=== PATIENT | male | born 1980 | race African-American/Black ===

== ENCOUNTER 2018-03-07 18:18 | Inpatient (IN) | payer OTHER, SELFPAY ==
[2018-03-07 19:35] LABS: Absolute Lymphocytes (CBC) 1.1 K/uL (0.7-4.9); Absolute Monocytes 0.1 K/uL (0.1-1.3); Absolute Neutrophil 1.7 K/uL (1.8-8.0); Basophils % 0.3 % (0-1.3); Eosinophils % 0.6 % (0-4.4); Hematocrit 17.6 % (39.6-49.0); Lymphocytes % 38.5 % (15.3-44.8); MCH 35.9 pg (27.0-35.0); MCV 104.8 fL (80-100); MPV 8.3 fL (7.6-11.3); RBC Red Blood Cell Count 1.68 M/uL (4.33-5.43)
--- NOTE | 2018-03-07 19:37 | RAD REPORT ---
EXAM DESCRIPTION: RAD - Chest Pa And Lat (2 Views) - 03/07/2018 7:26 pm CLINICAL HISTORY: COUGH Chest pain. COMPARISON: No comparisons FINDINGS: Mild retrocardiac linear opacities are seen likely representing subsegmental atelectasis. No focal infiltrate typical of pneumonia identified. The heart is normal in size. No displaced fractu res.
[2018-03-07] MEDS ORDERED: NA CHLORIDE 0.9% 1,000 ML ONE (19:42)
[2018-03-07 19:43] LABS: Potassium 3.6 mmol/L (3.5-5.1)
[2018-03-07 20:08] LABS: Platelet Estimate DECR; Urine White Blood Cell Casts OK
[2018-03-07 20:09] LABS: Anisocytosis 3+; Blood Morphology Comment NOTED (NOT SEEN); Hypochromasia 2+
[2018-03-07 20:38] LABS: Albumin 3.9 g/dL (3.4-5.0); Bilirubin Direct 0.4 mg/dL (0-0.2); Bilirubin Total 1.7 mg/dL (0.2-1.0); Protein, Total 7.8 g/dL (6.4-8.2)
[2018-03-07 20:39] LABS: Hypersegmented Neutrophils PRESENT; Platelets, Giant PRESENT
--- NOTE | 2018-03-07 20:42 | ER ---
Nurse's Notes [facility] Name: Sivakumar Aguiar Jr Age: 37 yrs Sex: Male : 1980 Arrival Date: 03/07/2018 Time: 18:20 Bed 18 Private MD: Domenico Santana H Diagnosis: Pancytopenia Presentation: 03/07 18:34 Presenting complaint: Patient states: "I sprayed the yard about a week ago and since aa5 then I've been weak and sluggish". Pt also reports nausea and vomiting. Pt also reports chest congestion. Transition of care: patient was not received from another setting of care. Care prior to arrival: None. 18:34 Method Of Arrival: Ambulatory aa5 18:34 Acuity: MEGHANN 3 aa5 22:00 Onset of symptoms was March 05, 2018. Risk Assessment: Do you want to hurt yourself or bs1 someone else? Patient reports no desire to harm self or others. Initial Sepsis Screen: Does the patient meet any 2 criteria? HR > 90 bpm. Does the patient have a suspected source of infection? No. Patient's initial sepsis screen is negative. Historical: - Allergies: 18:36 No Known Allergies; aa5 - Home Meds: 18:36 levothyroxine oral [Active]; aa5 - PMHx: 18:36 Hypothyroidism; aa5 - PSHx: 18:36 Tonsillectomy; aa5 - Immunization history:: Adult Immunizations unknown. - Social history:: Smoking status: Patient/guardian denies using tobacco. - Ebola Screening: : No symptoms or risks identified at this time. Screenin:51 Abuse screen: Denies threats or abuse. Denies injuries from another. Nutritional bs1 screening: No deficits noted. Tuberculosis screening: No symptoms or risk factors identified. Fall Risk None identified. Assessment: 19:15 General: Appears in no apparent distress. uncomfortable, ill, slender, well groomed, bs1 Behavior is calm, cooperative, appropriate for age. Pain: Denies pain. Neuro: Level of Consciousness is awake, alert, obeys commands, Oriented to person, place, time, situation, Appropriate for age Reports blurred vision dizziness, weakness. Cardiovascular: Denies chest pain, palpitations, shortness of breath, Heart tones S1 S2 present Capillary refill < 3 seconds Patient's skin is warm and dry. Respiratory: Reports cough that is non-productive, reports congestion Airway is patent Trachea midline Respiratory effort is even, unlabored, Respiratory pattern is regular, symmetrical, Breath sounds are clear bilaterally. GI: Abdomen is round non-distended, Bowel sounds present X 4 quads. Abd is soft and non tender X 4 quads. : No signs and/or symptoms were reported regarding the genitourinary system. EENT: No signs and/or symptoms were reported regarding the EENT system. Derm: Skin is intact, Skin is pink, warm \\T\\ dry. normal. Musculoskeletal: No signs and/or symptoms reported regarding the musculoskeletal system. 19:15 General: Reports feeling ill for 2-3 days. bs1 20:30 Reassessment: No changes from previously documented assessment. Patient and/or family bs1 updated on plan of care and expected duration. Pain level reassessed. Patient is alert, oriented x 3, equal unlabored respirations, skin warm/dry/pink. 21:45 Reassessment: Patient appears in no apparent distress at this time. No changes from bs1 previously documented assessment. Patient and/or family updated on plan of care and expected duration. Pain level reassessed. Patient is alert, oriented x 3, equal unlabored respirations, skin warm/dry/pink. Patient being admitted. No further needs at this time. 22:40 Reassessment: Clarified with AMANDA Felipe about blood order, order is for 2 units, Dr angelica Maxwell ordered 1 unit now and then 1 on hold. AMANDA gave verbal orders to follow Admitting hospitalists orders. 22:52 Reassessment: Reassessment: Nurse informed 4th floor Nurse Shanel that blood slips were bs1 just sent to ER. Vital Signs: 18:36 BP 145 / 91; Pulse 113; Resp 18 S; Temp 99.2(TE); Pulse Ox 100% on R/A; Weight 120.2 kg aa5 (R); Height 5 ft. 9 in. (175.26 cm) (R); Pain 0/10; 19:36 BP 136 / 89; Pulse 109; Resp 17 S; Pulse Ox 100% on R/A; bs1 20:36 BP 142 / 87; Pulse 108; Resp 18; Pulse Ox 100% on R/A; bs1 21:36 BP 142 / 86; Pulse 112; Resp 17; Temp 98.8(O); Pulse Ox 100% on R/A; bs1 22:36 BP 139 / 83; Pulse 107; Resp 18; Temp 98.5(O); Pulse Ox 100% on R/A; bs1 18:36 Body Mass Index 39.13 (120.20 kg, 175.26 cm) aa5 ED Course: 18:20 Patient arrived in ED. sb2 18:20 Domenico Santana DO is Private Physician. sb2 18:35 Triage completed. aa5 18:35 Arm band placed on. aa5 18:49 Lupillo Felipe PA is PHCP. jr8 18:49 Tio Lipscomb MD is Attending Physician. jr8 19:17 Inserted saline lock: 20 gauge in right antecubital area, using aseptic technique. bs1 Blood collected. 19:23 Patient moved to radiology via wheelchair. ml 19:23 X-ray completed. Patient tolerated procedure well. ml 19:24 XRAY Chest Pa And Lat (2 Views) In Process Unspecified. EDMS 19:24 Patient moved back from radiology. ml 19:26 Codi Shaffer, RN is Primary Nurse. bs1 19:50 Patient has correct armband on for positive identification. Bed in low position. Call bs1 light in reach. Side rails up X 1. Notified Nurse Practitioner and/or Physician Order Caller of a critical lab result(s), Hgb- 6.0, Hct- 17.6, Plt 49 no orders received at this time. 20:41 Aashish Perez MD is Hospitalizing Provider. jr8 21:15 by ar, sent to lab. Second set of blood cultures drawn Type and screen done. Blood band bs1 on right wrist. 22:00 No provider procedures requiring assistance completed. Patient admitted, IV remains in bs1 place. intact. Administered Medications: 19:44 Drug: NS 0.9% 1000 ml Route: IV; Rate: 1000 ml; Site: right antecubital; bs1 22:28 Follow up: IV Status: Completed infusion bs1 21:25 Drug: Cefepime 1 grams Route: IVPB; Rate: 200 ml/hr; Infused Over: 30 mins; Site: right bs1 antecubital; 22:28 Follow up: IV Status: Completed infusion bs1 Outcome: 20:41 Decision to Hospitalize by Provider. jr8 22:52 Admitted to Tele accompanied by tech, via wheelchair, room 409, with chart, Report bs1 called to NIGEL Ugarte 22:52 Condition: stable 22:52 Instructed on the need for admit, Demonstrated understanding of instructions. 23:03 Patient left the ED. bs1 Signatures: Dispatcher [employer] EDMS Luna Pack Audri, RN RN aa5 Lupillo Felipe PA PA jr8 Codi Shaffer, RN RN bs1 Narda Grace sb2 Corrections: (The following items were deleted from the chart) 18:37 18:34 Presenting complaint: Patient states: "I sprayed the yard about a week ago and aa5 since then I've been weak and sluggish". Pt also reports nausea and vomiting. aa5 21:59 19:15 Respiratory: Airway is patent Trachea midline Respiratory effort is even, bs1 unlabored, Respiratory pattern is regular, symmetrical, Breath sounds are clear bilaterally. bs1 22:03 19:17 Inserted saline lock: 20 gauge in right antecubital area, using aseptic bs1 technique. Blood collected. bs1 22:57 22:40 Reassessment: bs1 bs1
--- NOTE | 2018-03-07 20:42 | EDPHYS ---
Physician Documentation [facility] Name: Sivakumar Aguiar Jr Age: 37 yrs Sex: Male : 1980 Arrival Date: 03/07/2018 Time: 18:20 Bed 18 Private MD: Domenico Santnaa H ED Physician Tio Lipscomb HPI: 03/07 19:29 This 37 yrs old Black Male presents to ER via Ambulatory with complaints of Weakness. jr8 19:29 Patient stated that since this weekend has had n/v, cough, congestion, fevers, fatigue. jr8 Has been trying OTC medications without relief . Severity of symptoms: At their worst the symptoms were moderate in the emergency department the symptoms are unchanged. The patient has not experienced similar symptoms in the past. The patient has not recently seen a physician. Historical: - Allergies: 18:36 No Known Allergies; aa5 - Home Meds: 18:36 levothyroxine oral [Active]; aa5 - PMHx: 18:36 Hypothyroidism; aa5 - PSHx: 18:36 Tonsillectomy; aa5 - Immunization history:: Adult Immunizations unknown. - Social history:: Smoking status: Patient/guardian denies using tobacco. - Ebola Screening: : No symptoms or risks identified at this time. ROS: 19:29 Eyes: Negative for injury, pain, redness, and discharge, ENT: Negative for injury, jr8 pain, and discharge, Neck: Negative for injury, pain, and swelling, Cardiovascular: Negative for chest pain, palpitations, and edema, Back: Negative for injury and pain, MS/Extremity: Negative for injury and deformity, Skin: Negative for injury, rash, and discoloration, Neuro: Negative for headache, weakness, numbness, tingling, and seizure. 19:29 Constitutional: Positive for chills, fever. 19:29 Respiratory: Positive for cough, with clear sputum, Negative for shortness of breath, wheezing. 19:29 Abdomen/GI: Positive for nausea and vomiting. Exam: 19:29 Head/Face: Normocephalic, atraumatic. Eyes: Pupils equal round and reactive to light, jr8 extra-ocular motions intact. Lids and lashes normal. Conjunctiva and sclera are non-icteric and not injected. Cornea within normal limits. Periorbital areas with no swelling, redness, or edema. ENT: Nares patent. No nasal discharge, no septal abnormalities noted. Tympanic membranes are normal and external auditory canals are clear. Oropharynx with no redness, swelling, or masses, exudates, or evidence of obstruction, uvula midline. Mucous membranes moist. Neck: Trachea midline, no thyromegaly or masses palpated, and no cervical lymphadenopathy. Supple, full range of motion without nuchal rigidity, or vertebral point tenderness. No Meningismus. Cardiovascular: Regular rate and rhythm with a normal S1 and S2. No gallops, murmurs, or rubs. Normal PMI, no JVD. No pulse deficits. Respiratory: Lungs have equal breath sounds bilaterally, clear to auscultation and percussion. No rales, rhonchi or wheezes noted. No increased work of breathing, no retractions or nasal flaring. Abdomen/GI: Soft, non-tender, with normal bowel sounds. No distension or tympany. No guarding or rebound. No evidence of tenderness throughout. Back: No spinal tenderness. No costovertebral tenderness. Full range of motion. Skin: Warm, dry with normal turgor. Normal color with no rashes, no lesions, and no evidence of cellulitis. MS/ Extremity: Pulses equal, no cyanosis. Neurovascular intact. Full, normal range of motion. Neuro: Awake and alert, GCS 15, oriented to person, place, time, and situation. Cranial nerves II-XII grossly intact. Motor strength 5/5 in all extremities. Sensory grossly intact. Cerebellar exam normal. Normal gait. Vital Signs: 18:36 BP 145 / 91; Pulse 113; Resp 18 S; Temp 99.2(TE); Pulse Ox 100% on R/A; Weight 120.2 kg aa5 (R); Height 5 ft. 9 in. (175.26 cm) (R); Pain 0/10; 19:36 BP 136 / 89; Pulse 109; Resp 17 S; Pulse Ox 100% on R/A; bs1 20:36 BP 142 / 87; Pulse 108; Resp 18; Pulse Ox 100% on R/A; bs1 21:36 BP 142 / 86; Pulse 112; Resp 17; Temp 98.8(O); Pulse Ox 100% on R/A; bs1 22:36 BP 139 / 83; Pulse 107; Resp 18; Temp 98.5(O); Pulse Ox 100% on R/A; bs1 18:36 Body Mass Index 39.13 (120.20 kg, 175.26 cm) aa5 MDM: 18:49 Patient medically screened. [facility] 20:36 Data reviewed: vital signs, nurses notes, lab test result(s), radiologic studies, plain [facility] films, and as a result, I will admit patient. Data interpreted: Pulse oximetry: on room air is 100 %. Interpretation: normal. Counseling: I had a detailed discussion with the patient and/or guardian regarding: the historical points, exam findings, and any diagnostic results supporting the discharge/admit diagnosis, lab results, radiology results, the need for further work-up and treatment in the hospital. 20:40 ED course: Dr. Cook and Dr. Maxwell consulted and will see patient . [facility] 03/07 18:58 Order name: CBC with Diff [facility] 03/07 18:58 Order name: Basic Metabolic Panel; Complete Time: 19:49 [facility] 03/07 19:49 Order name: CBC Smear Scan [facility] 03/07 19:55 Order name: LFT's; Complete Time: 20:38 [facility] 03/07 20:36 Order name: TS [facility] 03/07 20:37 Order name: Manual Differential [facility] 03/07 18:58 Order name: XRAY Chest Pa And Lat (2 Views); Complete Time: 19:49 [facility] 03/07 20:45 Order name: Blood Culture Adult (2) [facility] 03/07 22:06 Order name: CONS Physician Consult [facility] 03/07 22:12 Order name: ABO/RH no charge; Complete Time: 22:12 [facility] 03/07 22:13 Order name: Sputum Culture [facility] 03/07 22:13 Order name: Packed RBC Leukored -1 [facility] 03/07 18:58 Order name: IV; Complete Time: 19:26 [facility] Administered Medications: 19:44 Drug: NS 0.9% 1000 ml Route: IV; Rate: 1000 ml; Site: right antecubital; bs1 22:28 Follow up: IV Status: Completed infusion bs1 21:25 Drug: Cefepime 1 grams Route: IVPB; Rate: 200 ml/hr; Infused Over: 30 mins; Site: right bs1 antecubital; 22:28 Follow up: IV Status: Completed infusion bs1 Disposition: 03/07/18 20:41 Hospitalization ordered by Aashish Perez for Inpatient Admission. Preliminary diagnosis is Pancytopenia. - Bed requested for Telemetry/MedSurg (Inpatient). - Status is Inpatient Admission. bs1 - Condition is Stable. - Problem is new. - Symptoms are unchanged. UTI on Admission? No Addendum: 03/14/2018 07:13 Co-signature as Attending Physician, Tio Lipscomb MD. g s Signatures: Dispatcher [employer] EDMS Pita Garcia RN RN Shakira Dejesus RN RN aa5 Lupillo Felipe PA PA jr8 Tio Lipscomb MD MD Codi Shaffer RN RN bs1 Corrections: (The following items were deleted from the chart) 03/07 20:51 20:41 Hospitalization Ordered by Aashish Perez MD for Inpatient Admission. Preliminary diagnosis is Pancytopenia. Bed requested for Telemetry/MedSurg (Inpatient). Status is Inpatient Admission. Condition is Stable. Problem is new. Symptoms are unchanged. UTI on Admission? No. jr8 23:03 20:51 03/07/2018 20:41 Hospitalization Ordered by Aashish Perez MD for Inpatient bs1 Admission. Preliminary diagnosis is Pancytopenia. Bed requested for Telemetry/MedSurg (Inpatient). Status is Inpatient Admission. Condition is Stable. Problem is new. Symptoms are unchanged. UTI on Admission? No. mw
[2018-03-07] MEDS ORDERED: CEFEPIME 1 GM/100 ML BAG IV ONE (20:48)
--- NOTE | 2018-03-07 22:07 | P.HP ---
Certification for Inpatient Patient admitted to: Inpatient With expected LOS: >2 Midnights Practitioner: I am a practitioner with admitting privileges, knowledge of patient current condition, hospital course, and medical plan of care. Services: Services provided to patient in accordance with Admission requirements found in Title 42 Section 412.3 of the Code of Federal Regulations Patient History Date of Service: 03/07/18 Reason for admission: pancytopenia History of Present Illness: Mr Aguiar is a 37 years old male with history of Hypothyroidism, who start about 1 week ago with dizziness, blurred vision, and lightheadedness. He states that start with productive cough with yellowish secretion as well. The patient has sprayed mosquito barrier before his symptoms started. He also had fever and fatigue. He tried OTC cold medication but did not improved his symptoms. ER work up was remarkable for pancytopenia, WBC 3.0, Hgb 6.0 and Plt 49, also Bands 3%. CXR was remarkable for linear retrocardiac opacity. At my encounter the patient was in non-distress, tachycardic 113, BP 145/91. He denied similar episodes like that. Home medications list reviewed: Yes - Past Medical/Surgical History -: hypothyroidism Past Surgical History: Reviewed- Non-Contributory - Family History Family History: Reviewed- Non-Contributory - Social History Smoking Status: Never smoker Alcohol use: Yes CD- Drugs: No Place of Residence: Home Review of Systems 10-point ROS is otherwise unremarkable Physical Examination - Physical Exam General: Alert, In no apparent distress HEENT: Atraumatic, PERRLA, Mucous membr. moist/pink, Other (pale sclerae), EOMI Neck: Supple, 2+ carotid pulse no bruit, No LAD, Without JVD or thyroid abnormality Respiratory: Clear to auscultation bilaterally, Normal air movement Cardiovascular: Regular rate/rhythm, Normal S1 S2 Gastrointestinal: Normal bowel sounds, No tenderness Musculoskeletal: No tenderness Integumentary: No rashes Neurological: Normal strength at 5/5 x4 extr, Normal tone, Normal affect Lymphatics: No axilla or inguinal lymphadenopathy - Studies Laboratory Data (last 24 hrs) 03/07/18 19:12: Total Bilirubin 1.7 H, AST 117 H, ALT 52, Alkaline Phosphatase 43 L 03/07/18 19:12: Sodium 138, Potassium 3.6, BUN 17, Creatinine 1.20, Glucose 182 H 03/07/18 19:12: WBC 3.0 L, Hgb 6.0 L*, Hct 17.6 L*, Plt Count 49 L* Assessment and Plan - Problems (Diagnosis) (1) Pancytopenia Current Visit: Yes Status: Acute (2) Pneumonia Current Visit: Yes Status: Acute Qualifiers: Pneumonia type: due to unspecified organism Laterality: left Lung location: lower lobe of lung Qualified Code(s): J18.1 - Lobar pneumonia, unspecified organism (3) Hypothyroidism Current Visit: Yes Status: Acute Qualifiers: Hypothyroidism type: unspecified Qualified Code(s): E03.9 - Hypothyroidism , unspecified - Plan The patient will be admitted to the hospital due to Pancytopenia. Etiology is unclear at this point, however differential diagnosis include aplastic anemia, Parvovirus B19 infection, other bacterial infection. Will start empiric antibiotic treatment. Blood cultures, urine culture and sputum culture are in process. He may benefit from a bone marrow biopsy. Will consult Dr Cook. - Advance Directives Does patient have a Living Will: No Does patient have a Durable POA for Healthcare: No - Code Status/Comfort Care Code Status Assessed: Yes Code Status: Full Code
[2018-03-08] MEDS ORDERED: IPRATROPIUM BROM 0.5MG/2.5ML NEB PRN (00:03)
[2018-03-08] MEDS ORDERED: ALBUTEROL 2.5 MG/3 ML NEB SOL NEB PRN (00:03)
[2018-03-08] MEDS ORDERED: ACETAMINOPHEN 500 MG TAB PO PRN (00:03)
[2018-03-08] MEDS ORDERED: NA CHLORIDE 0.9% 250 ML IV SCH (00:03)
[2018-03-08] MEDS ORDERED: ONDANSETRON 4 MG/2 ML VIAL IV PRN (00:03)
[2018-03-08 01:13] LABS: Thyroid Stimulating Hormone 5.22 uIU/mL (0.36-3.74)
[2018-03-08] MEDS: NA CHLORIDE 0.9% 1,000 ML IV SCH ×4 (01:15→20:03)
[2018-03-08 04:56] LABS: Urine Appearance CLEAR; Urine Bilirubin NEGATIVE (NEG); Urine Blood NEGATIVE (NEG); Urine Color YELLOW; Urine Glucose NEGATIVE (NEG); Urine Protein NEGATIVE (NEG); Urine Specific Gravity 1.015 (1.005-1.030); Urine pH 6.5 (5.0-7.0)
[2018-03-08 04:57] LABS: Absolute Lymphocytes (CBC) 0.9 K/uL (0.7-4.9); Absolute Monocytes 0.1 K/uL (0.1-1.3); Absolute Neutrophil 1.4 K/uL (1.8-8.0); Basophils % 0.3 % (0-1.3); Eosinophils % 0.9 % (0-4.4); Lymphocytes % 35.8 % (15.3-44.8); MCH 35.6 pg (27.0-35.0); MCV 103.6 fL (80-100); MPV 8.6 fL (7.6-11.3); Monocytes % 4.5 % (3.3-12.3); RBC Red Blood Cell Count 1.45 M/uL (4.33-5.43)
[2018-03-08 05:07] LABS: Urine Microscopic Reflex NO UMIC
[2018-03-08 05:08] LABS: Hematocrit 15.1 % (39.6-49.0)
[2018-03-08 05:15] LABS: ALT/SGPT 45 U/L (12-78); AST/SGOT 100 U/L (15-37); Albumin 3.4 g/dL (3.4-5.0); Alkaline Phosphatase 38 U/L (45-117); BUN Blood Urea Nitrogen 14 mg/dL (7-18); Bicarbonate 29 mmol/L (21-32); Bilirubin Total 1.6 mg/dL (0.2-1.0); Glucose Level 149 mg/dL (74-106); Potassium 3.8 mmol/L (3.5-5.1); Protein, Total 6.8 g/dL (6.4-8.2); Sodium Level 138 mmol/L (136-145)
[2018-03-08] MEDS ORDERED: POTASSIUM 25 MEQ EFFERV TAB PO ONE (05:27)
[2018-03-08] MEDS ORDERED: DIPHENHYDRAMINE 50 MG/ML VIAL IV ONE (05:58)
[2018-03-08] MEDS ORDERED: HYDROCORTISONE SUC 100 MG INJ IV ONE (05:58)
[2018-03-08] MEDS ORDERED: ACETAMINOPHEN 325 MG TABLET PO ONE (05:59)
[2018-03-08] MEDS ORDERED: Magnesium Sulfate 1gm IVPB 1 GM/50 ML BAG IV ONE (09:00)
[2018-03-08] MEDS ORDERED: CEFEPIME 2 GM VIAL IV SCH (09:00)
[2018-03-08] MEDS ORDERED: CEFEPIME/SWI 2gm 2 GM/20 ML SYR IV SCH ×2 (09:00→17:00)
[2018-03-08] MEDS ORDERED: MAGNESIUM SULFATE 1 gm IVPB 1 GM/100 ML BAG IV ONE (09:00)
[2018-03-08 11:02] LABS: Hematocrit 20.8 % (39.6-49.0)
[2018-03-08 14:36] LABS: RBC Red Blood Cell Count 2.15 M/uL (4.33-5.43)
[2018-03-08 15:07] LABS: Ferritin 742.4 ng/mL (26-388); Folic Acid, (Folate) 18.6 ng/mL (3.1-17.5); Transferrin 154 mg/dL (200-360)
[2018-03-08] MEDS: CEFEPIME/SWI 2gm 2 GM/20 ML SYR IVP SCH (16:36)
--- NOTE | 2018-03-08 17:37 | PN ---
Date of Progress Note: 03/08/2018 Subjective: The patient seen and examined, chart reviewed, and case discussed with RN and Dr. Cook. The patient states that he feels slightly better, however, still feels somewhat lightheaded and weak . Treatment plan explained. All questions answered. Review of Systems: Negative except as per HPI. Medications: List reviewed. Physical Examination: Vital Signs: Temperature 98.1, heart rate 97, blood pressure 125/64, respirations 18, and O2 sat 95% on room air. General: Awake, alert, oriented x3. Some mild distress ill-appearing male. CV: S1, S2. Sinus tachycardia. No murmurs. Respiratory: Clear to auscultation bilaterally. No wheezing. No stridor. No use of accessory musc les Gastrointestinal: Abdomen is soft, nontender, nondistended. Positive bowel sounds. No guarding or rigidity. Extremities: No clubbing, cyanosis, or edema. Neurologic: Nonfocal. Laboratory Data: Sodium 138, potassium 3.8, chloride 102, CO2 29, BUN 14, creatinine 1, glucose 149, calcium 8.5, and magnesium 1.6. Iron 185, TIBC is 216, transferrin is 154, and ferritin 724. LDH i s greater than 1000. CRP 14.6, total bilirubin 1.6, AST 100, ALT 45, and TSH 5.2. WBCs 2.5, H and H 5.2, 15.1, platelets 46. Repeat H and H after transfusion are 7.2, 20.8. Absolute neutrophils are 1.4. Blood cultures and sputum cultures pending. Assessment: A 37-year-old male with; 1.Pancytopenia, unclear etiology, may be leukemia, aplastic crisis. LDH is elevated. No signs of i sangita deficiency anemia. We will follow up with Dr. Cook's recommendation. Likely needs a peripheral blood smear, if not, a bone marrow biopsy. 2.Hypothyroidism. TSH is elevated. We will adjust dose. 3.Elevated liver enzymes. 4.Gastrointestinal and deep venous thrombosis prophylaxis with PPI and SCDs. Plan: We will follow up with immunology and serology workup. The patient may need to be transferred if in acute leukemic state versus possible outpatient followup with [facility] as patient is unfunded, uni nsured. /MARGARITA Voice ID: [id number] Report ID: [id number]
[2018-03-08] MEDS: guaiFENesin 100 MG/5 ML UCUP PO PRN (20:57)
[2018-03-08 21:08] LABS: Rheumatoid Factor NEG (NEG)
--- NOTE | 2018-03-08 22:29 | CON ---
Date of Consultation: 03/08/2018 HEMATOLOGY AND ONCOLOGY CONSULT NOTE Consulting Physician: Dr. Maxwell. Reason For Consultation: Pancytopenia. History Of Present Illness: Mr. Aguiar is a 37-year-old gentleman who presented to the emergency room yesterday with complaints of severe fatigue, cough productive of yellow sputum for the past week. He gives a history of significant worsening of his fatigue along with fevers and sweats, and cough, which started approximately 10 days ago. He said, he worked outdoors on Wednesday and was extremely fatigued, and pretty much slept the weekend away. When he return to work Wednesday, he was severely exhausted. He has noted fever, chills, and sweats off and on for the past week. He denies any history of recurrent infections, bleeding, or bruising. He gives a history of hypothyroidism, diagnosed approximately 2 years ago. He has been on thyroid replacement, and says he was told fatigue was a symptom of his hypothyroidism. He has attributed easy fatigability and exhaustion to his thyroid problem since then. There is a history of 35-pound weight loss in the past 2 years, he attributed it to eating healthy. There is a history of low iron levels when he was diagnosed with hypothyroidism 2 years ago, but says he could not pursue a GI workup, because it was too expensive. There is no history of receiving transfusions in the past. There is no history of bone pain or lymph node enlargement. He denies a history of rash, recurrent mouth sores or joint swelling. Review of Systems: Otherwise unremarkable. Past Medical History: Significant for hypothyroidism as noted above. Past Surgical History: Noncontributory. Medications: At home include; levothyroxine, which was recently increased from 75 mcg to 100 mcg daily. He takes a multivitamin, and an occasional iron, over the counter, approximately twice a week. He denies any [id number] supplements. Allergies: HE HAS NO KNOWN DRUG ALLERGIES. Social History: The patient is a nonsmoker. He drinks alcohol socially. There is no history of drug use or high-risk sexual behavior. Family History: His mother at the age of 57 from serious heart, coronary disease. His father is alive and well. He has 3 siblings and 5 children, none with a history of blood problems, cancers, or leukemia. His maternal grandmother is alive and has systemic lupus erythematosus (SLE). Physical Examination: General: Mr. Aguiar was resting comfortably when I saw him earlier today. Reveals a pale gentleman. Vital Signs: T-max was 99.2 on admission, yesterday. He has been afebrile since then. Temperature was 98.4 Fahrenheit at noon today. Pulse 99, respirations 18, blood pressure 136/83, he was saturating at 95% to 100% on room air. HEENT: There are no icterus. Skin: No rashes, bleeding or bruising noted. Lymph Node: Survey shows no palpable lymphadenopathy in the neck, axilla, or groin. Chest: Clear to auscultation with no rales or rhonchi. Heart Sounds: Reveal normal S1, S2. No gallops or murmurs. Abdomen: Soft and nontender. Liver and spleen were not palpable. There are no masses or ascites. Bowel sounds are present. Neurologic: Alert and oriented with no focal deficits. Extremities: Show no evidence of edema. Laboratory Data: CBC on admission yesterday revealed a white count of 3000 with an absolute neutrophil count of 1700, hemoglobin was 6, hematocrit 17.6 with an MCV of 104.8. RDW was increased at 33.6, platelet count was 49,000. He received 2 units of packed cells. Posttransfusion; hemoglobin this morning was 7.2, hematocrit was 20.8. His retic count was normal. Absolute retic was also normal at 0.02. Sedimentation rate was significantly elevated at more than 140. Chemistries reveal normal electrolytes and renal function. Iron was elevated at 185, transferrin saturation was also elevated at 85% with a ferritin of 742. Lactate dehydrogenase (LDH) was more than 1000. C-reactive protein was 14.6. His vitamin B12 level was significantly decreased at 60 pg/ mL. Folic acid was normal at 18.6. TSH on admission was mildly elevated at 5.22. Free T4 was normal. Chest x-ray on admission showed mild retrocardiac opacities, possibly atelectasis. No acute infiltrate was noted. Assessment And Plan: 1. Pancytopenia. He presents with significant pancytopenia, especially anemia and thrombocytopenia. WBC count may be low, but could be normal for him, as can be seen in population. The possible etiologies for the pancytopenia include severe B12 and/or folic acid deficiency, aplastic anemia, or marrow hypoplasia or acute leukemia. We also discussed that immune mediated cytopenias can be seen with systemic lupus erythematosus (SLE). We will proceed with a workup to rule out or in the above etiologies including a lupus screen, HIV, and hepatitis C antibodies. B12 level available at the time of the dictation were exceedingly low and hence we will proceed with B12 supplementation, the elevated RDW, elevated LDH and MCV are all suggestive of a severe B12 deficiency, possibly pernicious anemia. Peripheral smear showed no evidence of blasts or abnormal WBC. Some hypersegmented neutrophils were seen, as can be seen with B12 deficiency. We will continue to replace B12 1000 mcg subcu or intramuscular weekly x4, and follow his CBC as outpatient. He may be discharged home once his hemoglobin has stabilized to more than 7 g/dL , and follow up in clinic with me in 1 to 2 weeks. We will follow his hemoglobin and proceed with a bone marrow biopsy as an outpatient if need be. There is no need for PRBCs unless the Hg is <7gm/dl and no need for platelet transfusion unless his platelet count is less than 10,000 or there is evidence of significant bleeding and platelet count is below 50,000. Thank you for asking me to see Mr. Aguiar. Please do not hesitate to call me if you have any other questions AP/MODAndre Voice ID: [id number] Report ID: [id number] PRICE
[2018-03-09] MEDS: CEFEPIME/SWI 2gm 2 GM/20 ML SYR IVP SCH ×2 (01:29→10:07)
[2018-03-09] MEDS: NA CHLORIDE 0.9% 1,000 ML IV SCH ×3 (02:49→09:29)
[2018-03-09 05:23] LABS: Hematocrit 20.6 % (39.6-49.0)
[2018-03-09] MEDS ORDERED: LEVOTHYROXINE SOD 0.112 MG TAB PO SCH ×2 (06:30→21:00)
[2018-03-09 07:14] LABS: BUN Blood Urea Nitrogen 12 mg/dL (7-18); Bicarbonate 29 mmol/L (21-32); Glucose Level 135 mg/dL (74-106); Magnesium 2.1 mg/dL (1.8-2.4); Potassium 3.8 mmol/L (3.5-5.1); Sodium Level 139 mmol/L (136-145)
[2018-03-09] MEDS ORDERED: POTASSIUM CL SA 10 MEQ TAB PO ONE (08:23)
[2018-03-09] MEDS: guaiFENesin 100 MG/5 ML UCUP PO PRN (09:28)
[2018-03-09 11:13] LABS: Absolute Monocytes 0.1 K/uL (0.1-1.3); Basophils % 0.2 % (0-1.3); Eosinophils % 0.5 % (0-4.4); Hematocrit 21.7 % (39.6-49.0); Lymphocytes % 31.1 % (15.3-44.8); MCH 33.6 pg (27.0-35.0); MCV 95.9 fL (80-100); MPV 8.5 fL (7.6-11.3); Monocytes % 3.7 % (3.3-12.3); RBC Red Blood Cell Count 2.26 M/uL (4.33-5.43)
[2018-03-09] MEDS ORDERED: CYANOCOBALAMIN 1000MCG/ML INJ SQ ONE (13:00)
--- NOTE | 2018-03-10 12:37 | DS ---
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 Admitting Diagnoses: 1.Pancytopenia. 2.Hypothyroidism. Discharge Diagnoses: 1.Pancytopenia. 2.Hypothyroidism. 3.Pernicious anemia. 4.Vitamin B12 deficiency. 5.Elevated liver enzymes. 6.Obesity. Hospital Course: The patient is a 37-year-old male comes in with generalized weakness. The patient was found to have pancytopenia with white count of 3, hemoglobin of 6, platelets of 49. Chest x-ray showed some linear retrocardiac opacity likely atelectasis. The patient was tachycardic. He was sta rted on IV fluids. Empiric antibiotics were initiated. He was also seen by Dr. Cook with Hematology due to his pancytopenia. The patient was transfused 2 units of PRBCs due to a drop in his hemoglobi n. Further studies revealed very low vitamin B12 level and the patient was given vitamin B12 injecti on. His TSH was elevated at 5.2, free T4 was normal. He did have some mild electrolyte abnormalitie s, which were corrected including his magnesium. The patient otherwise had serology and immunology w [facility], which is currently pending. Peripheral smear was done to rule out leukemia or other acute iss ue found to have leukopenia with absolute neutropenia and left shift, normocytic normochromic anemia with anisopoikilocytosis and few nucleated red blood cells and thrombocytopenia. No blast cells were seen. The patient was then cleared for discharge. His symptoms were improved. He did not have any further dizziness. He was able to ambulate without any difficulty. The patient was then cleared fo r discharge from hematology standpoint. The patient will continue on subcu vitamin B12 shots for the next 4 weeks and then switch over to p.o. He will need to follow up with Dr. Cook for the remainder of his workup for his anemia and pancytopenia. The patient was then discharged home in a stable con dition. Return to work on March 14. Followup: Follow up with primary care physician in 2 to 3 days, Dr. Santana. Follow up with hematologis tDr. Cook in 2 weeks. Return to ER for worsening condition. Diet: Regular. Activity: As tolerated. No strenuous activity for the next few days. Medications: As per medication reconciliation list. Total time spent discharging the patient was 43 minutes. Physical Examination: General: Awake, alert, oriented, no acute distress. CV: S1, S2. No murmurs. Respiratory: Clear to auscultation bilaterally. No wheezing. Gastrointestinal: Abdomen is soft, nontender, nondistended. Positive bowel sounds. Extremities: No clubbing, cyanosis, edema. Neurologic: Nonfocal. /MODAndre Voice ID: [id number] Report ID: [id number]
[2018-03-10 16:14] LABS: HIV 1/2 Antibody Diff Not indicated.; HIV AG/AB 4TH GEN Non-reactive (Non-reactive)
[2018-03-10 19:13] LABS: Erythropoietin 255.8 mIU/mL (2.6-18.5)
[2018-03-15] MEDS ORDERED: CYANOCOBALAMIN 1000MCG/ML INJ SQ ONE (17:00)
== END 2018-03-09 14:21 | disposition home or self-care (01) | DRG 809 ==
LOC: ER 18:18 → ERHOLD 22:03 → 4TH 22:53
PROVIDERS: ADMIT Internal Medicine; ATTEND Family Medicine
PROC: 30233N1 Transfusion of Nonautologous Red Blood Cells into Peripheral Vein, Percutaneous Approach (ICD-10-PCS; principal; 2018-03-08)
DX: D61.818 Other pancytopenia (principal); J98.11 Atelectasis; E03.9 Hypothyroidism, unspecified; D51.0 Vitamin B12 deficiency anemia due to intrinsic factor deficiency; R79.89 Other specified abnormal findings of blood chemistry; E66.8 Other obesity; Z68.32 Body mass index [BMI] 32.0-32.9, adult; E87.8 Other disorders of electrolyte and fluid balance, not elsewhere classified; E83.42 Hypomagnesemia
CPT/HCPCS: 36415; 71046; 80048; 80053; 80076; 81003; 82607; 82668; 82728; 82746; 83540; 83615; 83735; 84439; 84443; 84466; 85014; 85018; 85025; 85044; 85652; 86038; 86140; 86225; 86430; 86704; 86706; 86803; 86850; 86900; 86901; 87040; 87389; 94760; 96361; 96365; 99285; J0692; J1720; J3420; J3475; J7030; P9040

== ENCOUNTER 2019-03-13 21:21 | Emergency (ER) | payer OTHER ==
--- OUTSIDE RECORDS SUMMARY | 2019-03-13 21:23 | XMS REPORT | Continuity of Care Document ---
:1980 Author Organization [facility] Care Team Providers Name Role Phone [facility] Unavailable Unavailable Problems Problem Status Onset Classification Date Comments Source Date Reported Tuberculosis 10/03/19 Diagnosis 10/03/2016 [facility] screening 17 Tuberculosis Problem 10/03/2016 [facility] Screening Medications Medication Details Route Status Patient Ordering Order Source Instructions Provider Date chlorhexidine chlorhexidine Active [facility] gluconate 1.2 gluconate 0.12 MG/ML Mouthwash % mouthwash SWISH AND SPIT 15ML BY MOUTH 3 TIMES A DAY Clindamycin 300 MG clindamycin 300 Active [facility] Oral Capsule mg capsule TAKE 1 CAPSULE BY MOUTH EVERY 6 HOURS UNTIL ALL TAKEN doxycycline doxycycline Active [facility] hyclate 20 MG Oral hyclate 20 mg Tablet tablet TAKE 1 TABLET BY MOUTH TWICE A DAY Ibuprofen 800 MG ibuprofen 800 Active [facility] Oral Tablet mg tablet TAKE 1 TABLET BY MOUTH EVERY 6 HOURS NEEDED Levothyroxine levothyroxine Active [facility] Sodium 0.075 MG 75 mcg tablet Oral Tablet TAKE 1 TABLET BY MOUTH EVERY DAY methylprednisolone methylprednisol Active [facility] 4 mg tablets in a one 4 mg dose pack tablets in a dose pack TAKE BY MOUTH DIRECTED ON PACKAGE terbinafine 250 MG terbinafine HCl Active [facility] Oral Tablet 250 mg tablet TAKE 1 TABLET BY MOUTH EVERY DAY tramadol tramadol 50 mg Active [facility] hydrochloride 50 tablet TAKE 1 MG Oral Tablet TABLET BY MOUTH EVERY 6 HOURS NEEDED Purified Protein Tubersol 5 tub. Active [facility] Derivative of unit/0.1 mL Tuberculin 50 intradermal UNT/ML Injectable injection Solution solution [Tubersol] Allergies, Adverse Reactions, Alerts No Known Medication Allergies Immunizations No Data Provided for This Section Results No Data Provided for This Section Pathology Reports No Data Provided for This Section Diagnostic Reports No Data Provided for This Section Consultation Notes No Data Provided for This Section Discharge Summaries No Data Provided for This Section History and Physicals No Data Provided for This Section Vital Signs No Data Provided for This Section Encounters Location Location Encounter Encounter Reason Attending ADM DC Status Source Details Type Number For Provider Date Date Visit [place] - [facility] [id number] [facility] 10/03 [facility] [place], [id number] [place] [facility] [facility]: [id number] [id number] [facility] [place] [address] , Ph. Procedures No Data Provided for This Section Assessment and Plan No Data Provided for This Section Plan of Care No Data Provided for This Section Social History No Data Provided for This Section Family History No Data Provided for This Section Advance Directives No Data Provided for This Section Functional Status No Data Provided for This Section
[2019-03-13 22:06] LABS: Absolute Lymphocytes (CBC) 1.2 K/uL (0.7-4.9); Basophils % 0.5 % (0-1.3); Eosinophils % 2.1 % (0-4.4); Hematocrit 46.7 % (39.6-49.0); Lymphocytes % 30.6 % (15.3-44.8); MPV 9.1 fL (7.6-11.3); Monocytes % 10.9 % (3.3-12.3); RBC Red Blood Cell Count 5.28 M/uL (4.33-5.43)
[2019-03-13] MEDS ORDERED: NA CHLORIDE 0.9% 1,000 ML ONE ×2 (22:11→23:05)
[2019-03-13 22:19] LABS: Albumin 3.9 g/dL (3.4-5.0); Bilirubin Total 0.7 mg/dL (0.2-1.0); Potassium 4.8 mmol/L (3.5-5.1); Protein, Total 8.4 g/dL (6.4-8.2)
[2019-03-13 22:34] LABS: Urine Blood NEGATIVE (NEG); Urine Glucose 2+ (NEG); Urine Protein NEGATIVE (NEG); Urine Specific Gravity <1.005 (1.005-1.030); Urine pH 5.5 (5.0-7.0)
[2019-03-13 22:50] LABS: Arterial Blood Carboxyhemoglob 1.2 % (0-1.5); Blood Gas Oxyhemoglobin 95.4 % (94-97); Blood O2 Saturation 97.6 % (92-98.5)
[2019-03-13] MEDS ORDERED: INSULIN -REGULAR HUMAN 50 UNIT/0.5 ML ML ONE (23:05)
[2019-03-14] MEDS ORDERED: NA CHLORIDE 0.9% 1,000 ML ONE (00:58)
--- NOTE | 2019-03-14 02:31 | EDPHYS ---
Physician Documentation [facility] Name: Sivakumar Aguiar Jr Age: 38 yrs Sex: Male : 1980 Arrival Date: 03/13/2019 Time: 21:24 Bed 8 Private MD: Domenico Santana H ED Physician Wilbert Kern HPI: 03/14 01:10 This 38 yrs old Black Male presents to ER via Ambulatory with complaints of High Blood pm1 Sugar. 01:10 The patient or guardian reports hyperglycemia, that was potentially precipitated by no pm1 improvement in his blood sugar with diet and exercise for the past 2-3 months. Onset: The symptoms/episode began/occurred 1 week(s) ago. Associated signs and symptoms: Pertinent positives: polydipsia, polyuria, generalized weakness. Current symptoms: In the emergency department the patient's symptoms have worsened. The patient has been recently seen by a physician: the patient's primary care provider, Dr. Santana. Patient presents today with elevated blood sugar. Has known for the past 2-3 months that his blood sugars have been high. Saw his PCP and was trailed on diet and exercise. For the past 1 week he has had generalized weakness, polydipsia and polyuria. Patient's blood sugar prior to arrival read HI at home. Patient ate dinner after HI reading and prior to ER arrival. Historical: - Home Meds: 03/13 21:52 levothyroxine oral [Active]; ea - PMHx: 21:52 Hypothyroidism; pernicious anemia; ea - PSHx: 21:52 Tonsillectomy; ea - Immunization history:: Adult Immunizations up to date. - Social history:: Smoking status: Patient/guardian denies using tobacco. - Ebola Screening: : No symptoms or risks identified at this time. ROS: 03/14 01:10 Constitutional: Negative for fever, chills, and weight loss, Eyes: Negative for injury, pm1 pain, redness, and discharge, ENT: Negative for injury, pain, and discharge, Neck: Negative for injury, pain, and swelling, Cardiovascular: Negative for chest pain, palpitations, and edema, Respiratory: Negative for shortness of breath, cough, wheezing, and pleuritic chest pain, Abdomen/GI: Negative for abdominal pain, nausea, vomiting, diarrhea, and constipation, Back: Negative for injury and pain, : Negative for injury, bleeding, discharge, and swelling, MS/Extremity: Negative for injury and deformity, Skin: Negative for injury, rash, and discoloration, Neuro: Negative for headache, weakness, numbness, tingling, and seizure. Endocrine: Positive for polydipsia, polyuria, Negative for polyphagia. Exam: 01:10 Constitutional: This is a well developed, well nourished patient who is awake, alert, pm1 and in no acute distress. Head/Face: Normocephalic, atraumatic. Eyes: Pupils equal round and reactive to light, extra-ocular motions intact. Lids and lashes normal. Conjunctiva and sclera are non-icteric and not injected. Cornea within normal limits. Periorbital areas with no swelling, redness, or edema. ENT: Nares patent. No nasal discharge, no septal abnormalities noted. Tympanic membranes are normal and external auditory canals are clear. Oropharynx with no redness, swelling, or masses, exudates, or evidence of obstruction, uvula midline. Mucous membranes moist. Neck: Trachea midline, no thyromegaly or masses palpated, and no cervical lymphadenopathy. Supple, full range of motion without nuchal rigidity, or vertebral point tenderness. No Meningismus. Chest/axilla: Normal chest wall appearance and motion. Nontender with no deformity. No lesions are appreciated. Cardiovascular: Regular rate and rhythm with a normal S1 and S2. No gallops, murmurs, or rubs. Normal PMI, no JVD. No pulse deficits. Respiratory: Lungs have equal breath sounds bilaterally, clear to auscultation and percussion. No rales, rhonchi or wheezes noted. No increased work of breathing, no retractions or nasal flaring. Abdomen/GI: Soft, non-tender, with normal bowel sounds. No distension or tympany. No guarding or rebound. No evidence of tenderness throughout. Back: No spinal tenderness. No costovertebral tenderness. Full range of motion. Skin: Warm, dry with normal turgor. Normal color with no rashes, no lesions, and no evidence of cellulitis. MS/ Extremity: Pulses equal, no cyanosis. Neurovascular intact. Full, normal range of motion. 01:10 Neuro: Orientation: is normal, Motor: is normal, moves all fours, Gait: is steady, at a normal pace, without difficulty. Vital Signs: 03/13 21:48 BP 132 / 106; Pulse 103; Resp 18; Temp 98; Pulse Ox 95% on R/A; Weight 106.59 kg; ea Height 5 ft. 9 in. (175.26 cm); Pain 0/10; 22:45 BP 118 / 90; Pulse 83; Resp 18; Pulse Ox 95% on R/A; tl2 23:19 BP 121 / 85; Pulse 83; Resp 18; Pulse Ox 95% on R/A; ea 03/14 00:36 BP 122 / 88; Pulse 78; Resp 18; Pulse Ox 95% on R/A; tl2 01:21 BP 126 / 88; Pulse 73; Resp 18; Pulse Ox 95% on R/A; ea 02:14 BP 97 / 64; Pulse 86; Resp 18; Pulse Ox 95% on R/A; tl2 02:35 BP 113 / 73; Pulse 72; Resp 18; Temp 97.6; Pulse Ox 95% on R/A; Pain 0/10; ea 03/13 21:48 Body Mass Index 34.70 (106.59 kg, 175.26 cm) ea MDM: 03/13 21:40 Patient medically screened. pm1 03/14 00:53 Data reviewed: vital signs. Data interpreted: Pulse oximetry: on room air is 95 %. pm1 Interpretation: normal. 00:58 Counseling: I had a detailed discussion with the patient and/or guardian regarding: the pm1 historical points, exam findings, and any diagnostic results supporting the discharge/admit diagnosis, lab results. 03/13 21:46 Order name: CBC with Diff pm1 03/13 21:46 Order name: CMP; Complete Time: 22:21 pm1 03/13 21:47 Order name: CBC with Automated Diff; Complete Time: 22:22 EDMS 03/13 22:23 Order name: ABG; Complete Time: 22:58 pm1 03/13 22:31 Order name: Urine Dipstick--Ancillary (enter results); Complete Time: 22:40 ar5 03/13 21:46 Order name: Urine Dipstick-Ancillary (obtain specimen); Complete Time: 22:33 pm1 03/13 21:46 Order name: IV Saline Lock; Complete Time: 21:54 pm1 03/13 21:46 Order name: Finger Stick; Complete Time: 21:52 pm1 Administered Medications: 03/13 22:04 Drug: NS 0.9% 1000 ml Route: IV; Rate: 1000 ml; Site: right antecubital; ea 03/14 00:44 Follow up: IV Status: Completed infusion; IV Intake: 1000ml tl2 03/13 22:55 Drug: NS 0.9% 1000 ml Route: IV; Rate: 1000 ml; Site: right antecubital; tl2 03/14 00:44 Follow up: IV Status: Completed infusion; IV Intake: 1000ml tl2 03/13 22:55 Drug: Insulin Regular Human 10 units {Co-Signature: сергей (Naye Shaikh RN).} Route: IVP; tl2 Site: right antecubital; 03/14 00:44 Follow up: Response: No adverse reaction; Blood sugar is lowered tl2 00:44 Drug: NS 0.9% 1000 ml Route: IV; Rate: 1 bolus; Site: right antecubital; tl2 02:10 Follow up: Response: No adverse reaction; IV Status: Completed infusion; IV Intake: ea 1000ml Point of Care Testing: Blood Glucose: 03/13 21:48 Blood Glucose: High (>450 mg/dL); сергей 23:58 Blood Glucose: 421 mg/dL; ea 03/14 01:11 Blood Glucose: 405 mg/dL; ea 02:16 Blood Glucose: 355 mg/dL; tl2 Ranges: Critical Glucose Levels:Adult <50 mg/dl or >400 mg/dl <40 mg/dl or >180 mg/dl Disposition: 22:10 Co-signature as Attending Physician, Wilbert Kern MD Available for consultation at ps1 all times. . Disposition: 03/14/19 02:30 Discharged to Home. Impression: Diabetes mellitus due to underlying condition. - Condition is Stable. - Discharge Instructions: Form - Daily Diabetes Record, Diabetes and Exercise, Diabetes Mellitus and Food. - Prescriptions for Metformin 500 mg Oral Tablet - take 1 tablet by ORAL route once daily for 7 days Then take 1 tablet with morning meals AND evening meals; 21 tablet. - Work release form, Family Work Release, Medication Reconciliation Form, Thank You Letter, Antibiotic Education, Prescription Opioid Use form. - Follow up: Emergency Department; When: As needed; Reason: Worsening of condition. Follow up: Private Physician; When: 2 - 3 days; Reason: Recheck today's complaints, Continuance of care, Re-evaluation by your physician. - Problem is new. - Symptoms have improved. Signatures: Dispatcher [employer] EDMS Satnam Kinney NP BEAM SEALER pm1 Sherlyn Kaba RN RN tl2 Naye Shaikh RN RN Wilbert Cárdenas MD MD ps1 Elena Antunez RN ea Corrections: (The following items were deleted from the chart) 02:42 02:30 03/14/2019 02:30 Discharged to Home. Impression: Diabetes mellitus due to ea underlying condition. Condition is Stable. Forms are Medication Reconciliation Form, Thank You Letter, Antibiotic Education, Prescription Opioid Use. Follow up: Emergency Department; When: As needed; Reason: Worsening of condition. Follow up: Private Physician; When: 2 - 3 days; Reason: Recheck today's complaints, Continuance of care, Re-evaluation by your physician. Problem is new. Symptoms have improved. pm1
--- NOTE | 2019-03-14 02:31 | ER ---
Nurse's Notes [facility] Name: Sivakumar Aguiar Jr Age: 38 yrs Sex: Male : 1980 Arrival Date: 03/13/2019 Time: 21:24 Bed 8 Private MD: Domenico Santana H Diagnosis: Diabetes mellitus due to underlying condition Presentation: 03/13 21:49 Presenting complaint: Patient states: Reports he has been feeling fatigued, thirsty, ea urinating a lot and blurred vision for a few days. Transition of care: patient was not received from another setting of care. Onset of symptoms was March 13, 2019. Risk Assessment: Do you want to hurt yourself or someone else? Patient reports no desire to harm self or others. Initial Sepsis Screen: Does the patient meet any 2 criteria? No. Patient's initial sepsis screen is negative. Does the patient have a suspected source of infection? No. Patient's initial sepsis screen is negative. Care prior to arrival: None. 21:49 Method Of Arrival: Ambulatory ea 21:49 Acuity: MEGHANN 3 ea Historical: - Home Meds: 21:52 levothyroxine oral [Active]; ea - PMHx: 21:52 Hypothyroidism; pernicious anemia; ea - PSHx: 21:52 Tonsillectomy; ea - Immunization history:: Adult Immunizations up to date. - Social history:: Smoking status: Patient/guardian denies using tobacco. - Ebola Screening: : No symptoms or risks identified at this time. Screenin:49 Abuse screen: Denies threats or abuse. Nutritional screening: No deficits noted. ea Tuberculosis screening: No symptoms or risk factors identified. Fall Risk None identified. Assessment: 22:02 General: Appears in no apparent distress. Behavior is calm, cooperative, appropriate ea for age. Pain: Denies pain. Neuro: Level of Consciousness is awake, alert, obeys commands, Oriented to person, place, time, situation. Cardiovascular: Patient's skin is warm and dry. Respiratory: Airway is patent Respiratory effort is even, unlabored, Respiratory pattern is regular, symmetrical. : Reports urinary frequency. Derm: Skin is pink, warm \T\ dry. Musculoskeletal: Circulation, motion, and sensation intact. 23:01 Reassessment: Patient and/or family updated on plan of care and expected duration. Pain ea level reassessed. Patient is alert, oriented x 3, equal unlabored respirations, skin warm/dry/pink. 03/14 00:30 Reassessment: Patient and/or family updated on plan of care and expected duration. Pain ea level reassessed. Patient is alert, oriented x 3, equal unlabored respirations, skin warm/dry/pink. 01:17 Reassessment: Patient and/or family updated on plan of care and expected duration. Pain ea level reassessed. Patient is alert, oriented x 3, equal unlabored respirations, skin warm/dry/pink. 02:39 Reassessment: Patient and/or family updated on plan of care and expected duration. Pain ea level reassessed. Patient is alert, oriented x 3, equal unlabored respirations, skin warm/dry/pink. Discharge instruction given to patient, verbalized the understanding of instruction. No s/s of pain or discomfort noted at this time. Pt left ED ambulatory with significant other, tolerating well Patient states feeling better. Vital Signs: 03/13 21:48 BP 132 / 106; Pulse 103; Resp 18; Temp 98; Pulse Ox 95% on R/A; Weight 106.59 kg; ea Height 5 ft. 9 in. (175.26 cm); Pain 0/10; 22:45 BP 118 / 90; Pulse 83; Resp 18; Pulse Ox 95% on R/A; tl2 23:19 BP 121 / 85; Pulse 83; Resp 18; Pulse Ox 95% on R/A; ea 03/14 00:36 BP 122 / 88; Pulse 78; Resp 18; Pulse Ox 95% on R/A; tl2 01:21 BP 126 / 88; Pulse 73; Resp 18; Pulse Ox 95% on R/A; ea 02:14 BP 97 / 64; Pulse 86; Resp 18; Pulse Ox 95% on R/A; tl2 02:35 BP 113 / 73; Pulse 72; Resp 18; Temp 97.6; Pulse Ox 95% on R/A; Pain 0/10; ea 03/13 21:48 Body Mass Index 34.70 (106.59 kg, 175.26 cm) ea ED Course: 03/13 21:24 Patient arrived in ED. es 21:25 Santana, Brittany-Martínez, DO is Private Physician. es 21:40 Satnam Kinney NP is PHCP. pm1 21:40 Wilbert Kern MD is Attending Physician. pm1 21:49 Patient has correct armband on for positive identification. Bed in low position. Call ea light in reach. Side rails up X 1. 21:49 Arm band placed on right wrist. Patient placed in an exam room, on a stretcher, on ea pulse oximetry. 21:51 Triage completed. ea 21:55 Inserted saline lock: 20 gauge in right antecubital area, using aseptic technique. tl2 Blood collected. 22:04 Naye Shaikh, RN is Primary Nurse. ea 03/14 02:40 No provider procedures requiring assistance completed. IV discontinued, intact, ea bleeding controlled, No redness/swelling at site. Pressure dressing applied. Administered Medications: 03/13 22:04 Drug: NS 0.9% 1000 ml Route: IV; Rate: 1000 ml; Site: right antecubital; ea 03/14 00:44 Follow up: IV Status: Completed infusion; IV Intake: 1000ml tl2 03/13 22:55 Drug: NS 0.9% 1000 ml Route: IV; Rate: 1000 ml; Site: right antecubital; tl2 03/14 00:44 Follow up: IV Status: Completed infusion; IV Intake: 1000ml tl2 03/13 22:55 Drug: Insulin Regular Human 10 units {Co-Signature: сергей (Naye Shaikh RN).} Route: IVP; tl2 Site: right antecubital; 03/14 00:44 Follow up: Response: No adverse reaction; Blood sugar is lowered tl2 00:44 Drug: NS 0.9% 1000 ml Route: IV; Rate: 1 bolus; Site: right antecubital; tl2 02:10 Follow up: Response: No adverse reaction; IV Status: Completed infusion; IV Intake: ea 1000ml Point of Care Testing: Blood Glucose: 03/13 21:48 Blood Glucose: High (>450 mg/dL); ea 23:58 Blood Glucose: 421 mg/dL; ea 03/14 01:11 Blood Glucose: 405 mg/dL; ea 02:16 Blood Glucose: 355 mg/dL; tl2 Ranges: Intake: 00:44 IV: 1000ml; Total: 1000ml. tl2 00:44 IV: 1000ml; Total: 2000ml. tl2 02:10 IV: 1000ml; Total: 3000ml. ea Outcome: 02:30 Discharge ordered by . pm1 02:41 Discharged to home ambulatory, with significant other. ea 02:41 Condition: stable 02:41 Discharge instructions given to patient, Instructed on discharge instructions, follow up and referral plans. medication usage, Demonstrated understanding of instructions, follow-up care, medications, Prescriptions given X 1. 02:42 Patient left the ED. ea Signatures: Pamela Sanchez Patrick, NP IRRIGATION SYSTEM OPERATOR pm1 Sherlyn Kaba RN RN tl2 Naye Shaikh RN RN ea Elena Antunez RN ea
== END 2019-03-14 02:42 | disposition home or self-care (01) ==
LOC: ER 21:21
DX: E11.9 Type 2 diabetes mellitus without complications (principal); E03.9 Hypothyroidism, unspecified
CPT/HCPCS: 36415; 80053; 81003; 82805; 82962; 85025; 96361; 96374; 99284; J7030

== ENCOUNTER 2020-05-27 22:28 | Emergency (ER) | payer OTHER ==
--- NOTE | 2020-05-27 22:57 | ER ---
Nurse's Notes [facility] Name: Sivakumar Aguiar Jr Age: 39 yrs Sex: Male : 1980 Arrival Date: 05/27/2020 Time: 22:31 Bed 5 Private MD: Domenico Santana H Diagnosis: Low back pain;Pain in left shoulder;Muscle spasm Presentation: 05/27 22:31 Chief complaint: EMS states: they were toned out for report of pt who was in a tractor trailer which was picked up by a melo and dropped 3 to 5 feet pt c/o left shoulder and arm and left sided pain. Incidentally pt' BGL was 463 on scene pt states he has not taken his DM medication tonight. Coronavirus screen: At this time, the client does not indicate any symptoms associated with coronavirus-19. Ebola Screen: No symptoms or risks identified at this time. Initial Sepsis Screen: Does the patient meet any 2 criteria? No. Patient's initial sepsis screen is negative. Does the patient have a suspected source of infection? No. Patient's initial sepsis screen is negative. Risk Assessment: Do you want to hurt yourself or someone else? Patient reports no desire to harm self or others. Onset of symptoms was May 27, 2020. 22:31 Method Of Arrival: EMS: [facility] 22:31 Acuity: MEGHANN 3 bb Triage Assessment: 22:35 General: Behavior is calm, cooperative. mg2 Historical: - Allergies: 22:32 No Known Allergies; sg - Home Meds: 22:44 Metformin Oral [Active]; levothyroxine oral [Active]; B-12 injections [Active]; bb glimepiride 4 mg oral tab [Active]; - PMHx: 22:32 Hypothyroidism; Pernicious Anemia; sg - PSHx: 22:32 Tonsillectomy; sg - Immunization history:: Adult Immunizations up to date. - Social history:: Smoking status: Patient denies any tobacco usage or history of. Screenin:35 Abuse screen: Denies threats or abuse. Denies injuries from another. Nutritional mg2 screening: No deficits noted. Tuberculosis screening: No symptoms or risk factors identified. 22:35 Fall Risk None identified. mg2 Assessment: 22:35 General: Appears in no apparent distress. comfortable. Pain: Complains of pain in left mg2 low back andf left shoulder. Neuro: Level of Consciousness is awake, alert, obeys commands, Oriented to person, place, time, situation. Cardiovascular: Capillary refill < 3 seconds Patient's skin is warm and dry. Respiratory: Trachea midline Respiratory effort is Respiratory pattern is regular, symmetrical. GI: No signs and/or symptoms were reported involving the gastrointestinal system. : No signs and/or symptoms were reported regarding the genitourinary system. EENT: No signs and/or symptoms were reported regarding the EENT system. Derm: Skin is intact, is healthy with good turgor, Skin is pink, warm \T\ dry. normal. Musculoskeletal: Circulation, motion, and sensation intact. Capillary refill < 3 seconds, Reports pain in left low back and left shoulder. Vital Signs: 22:31 BP 131 / 93; Pulse 99; Resp 14 S; Temp 98.7(O); Pulse Ox 98% on R/A; Weight 113.4 kg bb (R); Height 5 ft. 10 in. (177.80 cm) (R); Pain 2/10; 22:31 Body Mass Index 35.87 (113.40 kg, 177.80 cm) bb ED Course: 22:31 Patient arrived in ED. sg 22:32 Arm band placed on. sg 22:34 Triage completed. bb 22:35 Patient has correct armband on for positive identification. mg2 22:35 No provider procedures requiring assistance completed. Patient did not have IV access mg2 during this emergency room visit. 22:37 [facility]. jr8 22:37 Vasu Tellez MD is Attending Physician. jr8 22:55 Domenico Santana DO is Private Physician. sg 22:56 Domenico Santana DO is Referral Physician. jr8 23:09 Tomas Bhardwaj, DANIELLE is Primary Nurse. mg2 Administered Medications: No medications were administered Point of Care Testing: Blood Glucose: 22:32 Blood Glucose: 359 mg/dL; sg Ranges: Outcome: 22:56 Discharge ordered by . jr8 23:11 Discharged to home ambulatory. mg2 23:11 Condition: stable 23:11 Discharge instructions given to patient, Instructed on discharge instructions, follow up and referral plans. no driving heavy equipment, Demonstrated understanding of instructions, follow-up care, medications, Prescriptions given X 2. 23:11 Patient left the ED. mg2 Signatures: Quinn Fuentes, RN RN Alicia Oliva RN RN Lupillo Cotton PA PA jr8 Tomas Bhardwaj RN RN mg2
--- NOTE | 2020-05-27 22:57 | EDPHYS ---
Physician Documentation [facility] Name: Sivakumar Aguiar Jr Age: 39 yrs Sex: Male : 1980 Arrival Date: 05/27/2020 Time: 22:31 Bed 5 Private MD: Domenico Santana H ED Physician Vasu Tellez HPI: 05/27 22:53 This 39 yrs old Black Male presents to ER via EMS with complaints of Trauma. jr8 22:53 Onset: The symptoms/episode began/occurred acutely, today. The patient has not jr8 experienced similar symptoms in the past. The patient has not recently seen a physician. 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 Was at [place] of [place] and was off loading shipping container. Stated that melo was moving it off of his vehicle. Pin was stuck and picked up cab as well about 3-5 fee in air and then dropped him. Stated that it jolted him and since then has had mild left shoulder pain and left low back pain. Denies hitting head or neck. No LOC . Historical: - Allergies: 22:32 No Known Allergies; sg - Home Meds: 22:44 Metformin Oral [Active]; levothyroxine oral [Active]; B-12 injections [Active]; bb glimepiride 4 mg oral tab [Active]; - PMHx: 22:32 Hypothyroidism; Pernicious Anemia; sg - PSHx: 22:32 Tonsillectomy; sg - Immunization history:: Adult Immunizations up to date. - Social history:: Smoking status: Patient denies any tobacco usage or history of. ROS: 22:53 Eyes: Negative for injury, pain, redness, and discharge, ENT: Negative for injury, jr8 pain, and discharge, Neck: Negative for injury, pain, and swelling, Cardiovascular: Negative for chest pain, palpitations, and edema, Respiratory: Negative for shortness of breath, cough, wheezing, and pleuritic chest pain, Abdomen/GI: Negative for abdominal pain, nausea, vomiting, diarrhea, and constipation, Skin: Negative for injury, rash, and discoloration, Neuro: Negative for headache, weakness, numbness, tingling, and seizure. 22:53 Back: Positive for pain at rest, Negative for pain with movement, radiated pain. 22:53 MS/extremity: Positive for pain, of the left shoulder. Exam: 22:53 Eyes: Pupils equal round and reactive to light, extra-ocular motions intact. Lids and jr8 lashes normal. Conjunctiva and sclera are non-icteric and not injected. Cornea within normal limits. Periorbital areas with no swelling, redness, or edema. ENT: Nares patent. No nasal discharge, no septal abnormalities noted. Tympanic membranes are normal and external auditory canals are clear. Oropharynx with no redness, swelling, or masses, exudates, or evidence of obstruction, uvula midline. Mucous membranes moist. Neck: Trachea midline, no thyromegaly or masses palpated, and no cervical lymphadenopathy. Supple, full range of motion without nuchal rigidity, or vertebral point tenderness. No Meningismus. Chest/axilla: Normal chest wall appearance and motion. Nontender with no deformity. No lesions are appreciated. Cardiovascular: Regular rate and rhythm with a normal S1 and S2. No gallops, murmurs, or rubs. Normal PMI, no JVD. No pulse deficits. Respiratory: Lungs have equal breath sounds bilaterally, clear to auscultation and percussion. No rales, rhonchi or wheezes noted. No increased work of breathing, no retractions or nasal flaring. Abdomen/GI: Soft, non-tender, with normal bowel sounds. No distension or tympany. No guarding or rebound. No evidence of tenderness throughout. Skin: Warm, dry with normal turgor. Normal color with no rashes, no lesions, and no evidence of cellulitis. MS/ Extremity: Pulses equal, no cyanosis. Neurovascular intact. Full, normal range of motion. Neuro: Awake and alert, GCS 15, oriented to person, place, time, and situation. Cranial nerves II-XII grossly intact. Motor strength 5/5 in all extremities. Sensory grossly intact. Cerebellar exam normal. Normal gait. 22:53 Back: pain, that is mild, of the left low back, ROM is normal, normal spinal alignment noted, No vertebral point tenderness present . Vital Signs: 22:31 BP 131 / 93; Pulse 99; Resp 14 S; Temp 98.7(O); Pulse Ox 98% on R/A; Weight 113.4 kg bb (R); Height 5 ft. 10 in. (177.80 cm) (R); Pain 2/10; 22:31 Body Mass Index 35.87 (113.40 kg, 177.80 cm) bb MDM: 22:40 Patient medically screened. jr8 22:53 Data reviewed: vital signs, nurses notes, and as a result, I will discharge patient. jr8 Data interpreted: Pulse oximetry: on room air is 98 %. Interpretation: normal. Counseling: I had a detailed discussion with the patient and/or guardian regarding: the historical points, exam findings, and any diagnostic results supporting the discharge/admit diagnosis, the need for outpatient follow up, a family practitioner, to return to the emergency department if symptoms worsen or persist or if there are any questions or concerns that arise at home. 05/27 22:31 Order name: glucometer results - FOR PT WITH NO ID; Complete Time: 22:56 sg Administered Medications: No medications were administered Point of Care Testing: Blood Glucose: 22:32 Blood Glucose: 359 mg/dL; sg Ranges: Critical Glucose Levels:Adult <50 mg/dl or >400 mg/dl <40 mg/dl or >180 mg/dl Disposition: 05/28 01:19 Co-signature as Attending Physician, Vasu Tellez MD. irma Disposition: 05/27/20 22:56 Discharged to Home. Impression: Low back pain, Pain in left shoulder, Muscle spasm. - Condition is Stable. - Discharge Instructions: Back Pain, Adult, Shoulder Pain, Heat Therapy. - Prescriptions for Ibuprofen 800 mg Oral Tablet - take 1 tablet by ORAL route every 12 hours As needed take with food; 20 tablet. Robaxin 500 mg Oral Tablet - take 2 tablet by ORAL route every 6 hours As needed; 40 tablet. - Medication Reconciliation Form, Thank You Letter, Antibiotic Education, Prescription Opioid Use, Work release form form. - Follow up: Domenico Santana DO; When: 2 - 3 days; Reason: Recheck today's complaints, Continuance of care, Re-evaluation by your physician. - Problem is new. - Symptoms have improved. Signatures: Dispatcher [employer] EDQuinn Pina RN RN sg Lam, Pin, MD MD pkl Ballard, Brenda, RN RN bb Roszak, Josh, PA PA jr8 Tomas Bhardwaj RN RN mg2 Corrections: (The following items were deleted from the chart) 05/27 23:02 22:56 05/27/2020 22:56 Discharged to Home. Impression: Low back pain; Pain in left jr8 shoulder. Condition is Stable. Forms are Medication Reconciliation Form, Thank You Letter, Antibiotic Education, Prescription Opioid Use. Follow up: Domenico Santana; When: 2 - 3 days; Reason: Recheck today's complaints, Continuance of care, Re-evaluation by your physician. Problem is new. Symptoms have improved. jr8 23:11 23:02 05/27/2020 22:56 Discharged to Home. Impression: Low back pain; Pain in left mg2 shoulder; Muscle spasm. Condition is Stable. Discharge Instructions: Back Pain, Adult, Shoulder Pain. Forms are Medication Reconciliation Form, Thank You Letter, Antibiotic Education, Prescription Opioid Use. Follow up: Domenico Santana; When: 2 - 3 days; Reason: Recheck today's complaints, Continuance of care, Re-evaluation by your physician. Problem is new. Symptoms have improved. jr8
[2020-05-27 23:41] VITALS: BP 131/93; TEMP 98.7; O2SAT 98
== END 2020-05-27 23:11 | disposition home or self-care (01) ==
LOC: ER 22:28
DX: M62.838 Other muscle spasm (principal); M25.512 Pain in left shoulder; E03.9 Hypothyroidism, unspecified
CPT/HCPCS: 36415; 82947; 99283

== ENCOUNTER 2023-06-06 14:09 | Inpatient (IN) | payer OTHER ==
--- OUTSIDE RECORDS SUMMARY | 2023-06-06 14:14 | XMS REPORT | Continuity of Care Document ---
:1980 Author Organization [facility] t Address [address] [place] [address] Care Team Providers Name Role Phone GC_[email or web address]_T Attending Clinician Unavailable Matilde Low NP Attending Clinician GC_ERICK_Dieter_T Admitting Clinician Unavailable Payers Payer Name Policy Type Policy Number Effective Date Expiration Date [facility] [id number] 2015 00:00:00 AET[employer] [id number] Problems Condition Condition Condition Status Onset Resolution Last Treating Co mments Source Name Details Category Date Date Treatment Clinician Date Type II Type II Problem Active [facility] diabetes Diabetes 4-25 Medica l mellitus Mellitus 00:00: uncontroll Uncontroll 00 ed ed Mixed Mixed Problem Active [facility] hyperlipid Hyperlipid 4-25 Me dical emia emia 00:00: 00 Obesity Obesity Problem Active [facility] 4-25 Medical 00:00: 00 No known No known Disease Unive rs active active ity of problems problems [facility] Allergies, Adverse Reactions, Alerts Allergy Allergy Status Severity Reaction(s) Onset Inactive Treating Comm ents Source Name Type Date Date Clinician NO KNOWN Drug Active Univers ALLERGIE Class ity of S [facility] Social History Social Habit Start Date Stop Date Quantity Comments Source Exposure to Yes [facility] SARS-CoV-2 (event) Medica l Branch Sex Assigned At [birth year] [facility] 00:00:00 00:00:00 Medical Branch Smoking Status Start Date Stop Date Source Never Smoker [facility] Unknown if ever smoked [facility] Medications Ordered Filled Start Stop Current Ordering Indication Dosage Frequency Signature Comments Components Source Medication Medication Date Date Medication? Clinician (SIG) Name Name insulin 2020- No 5U 5 Units, Unive rs regular 12-12-15 Subcutaneo ity o f human 09:30: 08:47 , ONCE, [place] (HUMULIN R) 00 :00 1 dose, Medic al injection 5 Faith Branch Units 12/12/20 at 0430, Routine insulin Yes .05U/kg 0.05 Univers regular in 4-15 /h Units/kg/h ity of 0.9 % NaCl 08:19: r ?97.5 kg [place] (MYXREDLIN) 56 (4.875 Medica l 100 mL/hr, Branch unit/100 mL rounded to (1 unit/mL) 4.88 RTU IV mL/hr), IV infusion Infusion, TITRATE, Parameters in Admin. Instr., Follow DKA Insulin Rate Adjustment Protocol, Starting Faith 12/12/20 at 0319
- Follow 'DKA Insulin Rate Adjustment Protocol' - Hold insulin and NHO STAT if potassium is less than 3.3 mEq/L.&nbs p;- NHO STAT if blood glucose less than 85 mg/dL or greater than 600 mg/dL or if blood glucose not decreased by 10% in the first hour of insulin infusion.& nbsp;- NHO once blood glucose is less than or equal to 200 mg/dL in patient with DKA or blood glucose is less than or equal to 300 mg/dL in patient with HHS for order to change to fluids that contain dextrose.& nbsp;- If during insulin infusion and on dextrose fluids blood glucose is less than 150 mg/dL in DKA or less than 200 mg/dL in HHS, NHO for increase in dextrose provided in continuous fluids.&am p;nbsp;- Once AGAP less than 12, blood glucose less than 200 mg/dL, TCO2 greater than 15 x 2 and patient ready to eat, NHO for SubQ glargine order two hours before stopping insulin infusion.< br> NaCl 0.9% 2020- No 1000mL at 999 Uni vers (NS) bolus 12-12-15 mL/hr, ity of infusion 06:56: 08:02 1,000 mL, Munir as 1,000 mL 00 :00 IV Medical Infusion, Branch ONCE, 1 dose, Faith 12/12/20 at 0200, STAT acetaminoph No 650mg 650 mg, U nivers en 12-12 Oral, ity of (TYLENOL) 06:00: 05:24 ONCE, 1 [place] tablet 650 00 :00 dose, Faith Medi felicity mg 12/12/20 at Branch 0100, EMILY ketorolac No 30mg 30 mg, Unive rs (TORADOL) 12-12 Slow IV ity of injection 06:00: 05:27 Push, [place] 30 mg 00 :00 ONCE, 1 Medical dose, Faith [place] 12/12/20 at 0100, Routine
assembly member approving Restricted medication : KENNETHARUN MATILDE G NaCl 0.9% 1000mL at 999 Uni vers (NS) bolus 12-12 mL/hr, ity of infusion 05:00: 06:53 1,000 mL, Munir as 1,000 mL 00 :00 IV Medical Infusion, Branch ONCE, 1 dose, Faith 12/12/20 at 0000, EMILY No known No Univers medications ity of [facility] cyanocobala cyanocobala No cyanocobal [facility] min (vit min (vit haro (vit Me dical B-12) 1,000 B-12) 1,000 B-12) mcg mcg 1,000 mcg sublingual sublingual sublingual lozenge lozenge lozenge Place by Place by Place by sublingual sublingual sublingual route. route. route. levothyroxi levothyroxi No 1 Q1D levothyrox [facility] ne 150 mcg ne 150 mcg ine 150 Medical tablet Take tablet Take mcg tablet 1 tablet 1 tablet Take 1 every day every day tablet by oral by oral every day route. route. by oral route. losartan 50 losartan 50 No 1 Q1D losartan [facility] mg tablet mg tablet 50 mg Medi felicity Take 1 Take 1 tablet tablet tablet Take 1 every day every day tablet by oral by oral every day route. route. by oral route. Novolin R Novolin R No Novolin R [facility] Regular Regular Regular Medica l U-100 U-100 U-100 Insulin 100 Insulin 100 Insulin unit/mL unit/mL 100 injection injection unit/mL solution solution injection Take by Take by solution injection injection Take by route. route. injection route. Novolog Novolog No Novolog [facility] FlexPen FlexPen FlexPen Medica l U-100 U-100 U-100 Insulin Insulin Insulin aspart 100 aspart 100 aspart 100 unit/mL (3 unit/mL (3 unit/mL (3 mL) mL) mL) subcutaneou subcutaneou subcutaneo s inject up s inject up us inject to 15 units to 15 units up to 15 TIC AC TIC AC units TIC total daily total daily AC total max for 90 max for 90 daily max day supply day supply for 90 day supply Toujeo Max Toujeo Max No Toujeo Max [facility] U-300 U-300 U-300 Medical SoloStar SoloStar SoloStar 300 unit/mL 300 unit/mL 300 (3 mL) (3 mL) unit/mL (3 subcutaneou subcutaneou mL) s insulin s insulin subcutaneo pen inject pen inject us insulin 50 units 50 units pen inject daily at daily at 50 units bedtime bedtime daily at daily daily bedtime daily cyanocobala cyanocobala No cyanocobal [facility] min (vit min (vit haro (vit Me dical B-12) 1,000 B-12) 1,000 B-12) mcg mcg 1,000 mcg sublingual sublingual sublingual lozenge lozenge lozenge Place by Place by Place by sublingual sublingual sublingual route. route. route. levothyroxi levothyroxi No 1 Q1D levothyrox [facility] ne 150 mcg ne 150 mcg ine 150 Medical tablet Take tablet Take mcg tablet 1 tablet 1 tablet Take 1 every day every day tablet by oral by oral every day route. route. by oral route. losartan 50 losartan 50 No 1 Q1D losartan [facility] mg tablet mg tablet 50 mg Medi felicity Take 1 Take 1 tablet tablet tablet Take 1 every day every day tablet by oral by oral every day route. route. by oral route. Novolin R Novolin R No Novolin R [facility] Regular Regular Regular Medica l U-100 U-100 U-100 Insulin 100 Insulin 100 Insulin unit/mL unit/mL 100 injection injection unit/mL solution solution injection Take by Take by solution injection injection Take by route. route. injection route. Novolog Novolog No Novolog [facility] FlexPen FlexPen FlexPen Medica l U-100 U-100 U-100 Insulin Insulin Insulin aspart 100 aspart 100 aspart 100 unit/mL (3 unit/mL (3 unit/mL (3 mL) mL) mL) subcutaneou subcutaneou subcutaneo s inject up s inject up us inject to 15 units to 15 units up to 15 TIC AC TIC AC units TIC total daily total daily AC total max for 90 max for 90 daily max day supply day supply for 90 day supply Toujeo Max Toujeo Max No Toujeo Max [facility] U-300 U-300 U-300 Medical SoloStar SoloStar SoloStar 300 unit/mL 300 unit/mL 300 (3 mL) (3 mL) unit/mL (3 subcutaneou subcutaneou mL) s insulin s insulin subcutaneo pen inject pen inject us insulin 50 units 50 units pen inject daily at daily at 50 units bedtime bedtime daily at daily daily bedtime daily Vital Signs Vital Name Observation Time Observation Value Comments Source BP Diastolic 2022-12-22 00:00:00 80 mm[Hg] Kim Majano [facility] Height 2022-12-22 00:00:00 69 [in_i] [facility] BMI (Body Mass 2022-12-22 00:00:00 35.1 kg/m2 [facility] Index) BP Systolic 2022-12-22 00:00:00 140 mm[Hg] Kim Majano [facility] Body Weight 2022-12-22 00:00:00 238 [lb_av] Kim Majano [facility] Systolic blood 2020-12-12 11:31:00 119 mm[Hg] Univer sity of pressure [facility] Diastolic blood 2020-12-12 11:31:00 95 mm[facility]Hg[facility] Heart rate 2020-12-12 11:31:00 97 /min [facility] Body temperature 2020-12-12 11:31:00 37.17 Isabel [facility] Respiratory rate 2020-12-12 11:31:00 23 /min [facility] Oxygen saturation in 2020-12-12 11:31:00 96 /min [facility] Arterial blood by [facility] Pulse oximetry Branch Body weight 2020-12-12 04:44:00 97.523 [facility] Procedures Procedure Date / Time Performing Clinician Source Performed POCT GLUCOSE (AUTOMATED) 2020-12-12 11:36:00 [facility]) 2020-12-12 10:39:00 [facility] PO[facility] GLUCOSE (AUTOMATED) 2020-12-12 09:37:00 [facility] POCT GLUCOSE (AUTOMATED) 2020-12-12 08:36:00 Matilde Low [facility] ACUTE CARE VENOUS BLOOD 2020-12-12 07:31:00 Matilde Low [facility] BLOOD CULTURE SCREEN 2020-12-12 06:18:00 Matilde Low [facility] XR CHEST 1 VW 2020-12-12 05:37:44 Matilde Low [facility] BLOOD CULTURE SCREEN 2020-12-12 05:09:00 Matilde Low [facility] LACTATE DEHYDROGENASE 2020-12-12 05:08:00 Matilde Low [facility] LIPASE 2020-12-12 05:08:00 Matilde Low [facility] FERRITIN SERUM 2020-12-12 05:08:00 Matilde Low [facility] TROPONIN I 2020-12-12 05:08:00 Matilde Low [facility] HEPATIC FUNCTION PANEL 2020-12-12 05:08:00 Matilde Low [facility] ([id number]) (ALB,T.PRO,BILI [facility] Branch T,BU/BC,ALT,AST,ALK PHOS) BASIC METABOLIC PANEL 2020-12-12 05:08:00 Matilde Low [facility] (NA, K, CL, CO2, Medical Branch GLUCOSE, BUN, CREATININE, CA) CBC WITH DIFF 2020-12-12 05:08:00 Matilde Low [facility] PROTHROMBIN TIME / INR 2020-12-12 05:08:00 Matilde Low [facility] D-DIMER 2020-12-12 05:08:00 Matilde Low [facility] ACTIVATED PARTIAL 2020-12-12 05:08:00 Matilde Low [facility] THRMPLAS KATERINE Medical Branch FIBRINOGEN 2020-12-12 05:08:00 Matilde Low [facility] N-TERMINAL PRO-BNP 2020-12-12 05:08:00 Matilde Low [facility] URINALYSIS 2020-12-12 04:57:00 Matilde Low [facility] COVID-19 (ID NOW RAPID 2020-12-12 04:57:00 Matilde Low [facility] TESTING) [facility] NOTICE OF PRIVACY 2020-12-12 04:08:05 Doctor Unassigned, No [facility] PRACTICES Name [facility] CONSENT/REFUSAL FOR 2020-12-12 04:07:40 Doctor Unassigned, No [facility] DIAGNOSIS AND TREATMENT [facility] Plan of Care Planned Activity Planned Date Details Comments Source Diagnostic Test Pending 2022-12-22 00:00:00 glucose, [facility] fingerstick, blood [code = glucose, fingerstick, blood] Encounters Start End Encounter Admission Attending Care Care Encounter Source Date/Time Date/Time Type Type Clinicians Facility Department ID 2023-05-27 2023-05-27 Outpatient GC_EDEC_Won PRIV PRIV [id number] [facility] 00:00:00 00:00:00 g_T [id number] Medica 2023-01-26 2023-01-26 Outpatient GC_EDEC_Won PRIV PRIV [id number] [facility] 00:00:00 00:00:00 g_T [id number] Medica 2023-01-20 2023-01-20 Outpatient GC_EDEC_Won PRIV PRIV [id number] [facility] 00:00:00 00:00:00 g_T [id number] Medica 2023-01-03 2023-01-03 Outpatient GC_EDEC_Won PRIV PRIV [id number] [facility] 00:00:00 00:00:00 g_T [id number] [facility] 2023-01-03 2023-01-03 Outpatient GC_EDEC_Won PRIV PRIV [id number] [facility] 00:00:00 00:00:00 g_T [id number] Medica l 2022-12-22 2022-12-22 Outpatient GC_EDEC_Won PRIV PRIV [id number] [facility] 00:00:00 00:00:00 g_T [id number] Medica l 2022-12-22 2022-12-22 [facility] 25 [facility] 00:00:00 00:00:00 [facility] Medic al Garcias, [facility]EDEC[facility]Pas [facility]C: andrez [phone] Office* [facility] [address], [place] [address] , Ph. 2022-12-15 2022-12-15 Outpatient GC_EDEC_Won PRIV PRIV [id number] [facility] 00:00:00 00:00:00 g_T [id number] Medica l 2022-11-26 2022-11-26 Outpatient PRIV PRIV [id number] [facility] 00:00:00 00:00:00 [id number] Medica l 2020-12-11 2020-12-12 Emergency [facility], [facility] [id number] Univers 23:48:00 06:53:00 Matilde [place] [id number] ity [facility] [id number] [facility] [id number] [address] 2020-12-11 2020-12-11 Emergency X [facility] ERT [id number] Univers 23:09:00 23:09:00 ity of [facility] Results Test Description Test Time Test Comments Results Result Comments Source Glucose [Mass/volume] in Capillary blood 2022-12-22 16:39:55 Test Item Value Reference Range Interpretation Comme nts glucose (test code = glucose) 296 mg/dL [facility] MedicalGlucose [Mass/volume] in Capillary [id number] 16:39:55 Test Item Value Reference Range Interpretation Comments glucose (test code = glucose) 296 mg/dL [facility] MedicalPOCT GLUCOSE (AUTOMATED)2020-12-12 11:40:14 Test Item Value Reference Range Interpretation Comments POCT GLU (test code = 395 mg/dL 70-110 H Notifi ed Provider [id number]) Lab Interpretation (test Abnormal code = 12550-6) [facility] GLUCOSE (AUTOMATED)2020-12-12 10:45:19 Test Item Value Reference Range Interpretation Comments POCT GLU (test code = 424 mg/dL 70-110 H Notifi ed Provider [id number]) Lab Interpretation (test Abnormal code = 08901-3) [facility] GLUCOSE (AUTOMATED)2020-12-12 09:40:38 Test Item Value Reference Range Interpretation Comments POCT GLU (test code = 482 mg/dL 70-110 HH Notifi ed Provider [id number]) Lab Interpretation (test Abnormal code = 71163-0) [facility] [place] [facility] [id number] 09:08:30 Test Item Value Reference Range Interpretation Comments FERRITIN (test code = 692.0 ng/mL 18.0-464.0 H [id number]) JULIO (test code = JULIO) Biotin has been reported to cause a negative bias, interpret results relative to patient's use of biotin. Lab Interpretation (test Abnormal code = 80649-7) [facility] GLUCOSE (AUTOMATED)2020-12-12 08:51:14 Test Item Value Reference Range Interpretation Comments POCT GLU (test code = 530 mg/dL 70-110 HH Notifi ed Provider [id number]) Lab Interpretation (test Abnormal code = 47270-5) [facility] VENOUS BLOOD [id number] 07:40:31 Test Item Value Reference Range Interpretation Comments PH (test code = 7.32-7.42 2904206986) PCO2 ESTHELA (test code = See_Comment L [Auto mated message] [id number]) The system [employer] generated this result transmitted ref erence range: 41 - 51 mmHg. The reference r simon was not used to interpret this result as normal/abnor mal. PO2 ESTHELA (test code = See_Comment H [Autom ated message] 2111425040) The system [employer] generated this result transmitted ref erence range: 25 - 40 mmHg. The reference r simon was not used to interpret this result as normal/abnor mal. HCO3 ESTHELA (test code = See_Comment L [Auto mated message] 9526604008) The system [employer] generated this result transmitted ref erence range: 24 - 28 mEq/L. The reference r simon was not used to interpret this result as normal/abnor mal. AC VBE(BEAKER) (test mEq/L code = 5574105599) Lab Interpretation (test Abnormal code = 62838-9) [facility] [place] [facility]-[id number] 06:44:34 Test Item Value Reference Interpretation Comments Range D-DIMER (test code = <0.27 See_Comment [Autom ated 3001542137) message] The system which generated this result transmitted reference range : <0.41 ?g/mL (FEU). The reference range was not used to interpret this result as normal/abnormal . JULIO (test code = This test may be JULIO) used in conjunction with a clinical pretest probability (PTP) assessment model to exclude venous thromboembolism (VTE) in patients suspected of deep venous thrombosis (DVT) and pulmonary embolism (PE) A D-Dimer value less than 0.50 ?g/ml (FEU) has a negative predicative value of 96 to 100% (95% CI)and 97 to 100% (95% CI) as an aid in the diagnosis of deep vein thrombosis (DVT) and pulmonary embolism when there is low or moderate pretest probability of PE or DVT. D-Dimer values are expressed in initial fibrinogen equivalent units (FEU)" The assay results should be used with other information, including the clinical context, in forming a diagnosis. Lab Interpretation Normal (test code = 30484-3) [facility] [place] [facility] [id number] 06:15:11 Test Item Value Reference Range Interpretation Comments TROPONIN I (test 0.000 ng/mL See_Comment [Automated code = 0797556195) message] The system which generated this result transmitted reference range : <=0.034. The reference range was not used to interpret this result as normal/abnormal . JULIO (test code = Equal or Less than JUILO) 0.034 ng/ml---Normal ?Note: Cardiac troponin begins to rise 3-4 hours after the onset of ischemia. Repeat in 4-6 hours if the sample was drawn within 3-4 hours of the onset of the symptom and found normal. Between 0.035 and 0.120 ng/mL--- Borderline. Questionable myocardial injury or necrosis ? ?Note: Serial measurement may be necessary to confirm or exclude the diagnosis of myocardial injury or necrosis; Clinical correlation (symptoms, EKGs, imaging studies, and others) required; Repeat in 4-6 hours if clinically indicated. ? Equal or Higher than 0.121 ng/mL---Abnormal. Myocardial Injury or Necrosis Likely ? Biotin has been reported to cause a negative bias, interpret results relative to patient's use of biotin. ? Lab Interpretation Normal (test code = 60225-2) [facility] [place] [facility] Met[facility] (NA, K, CL, CO2, GLUCOSE, BUN, CREATININE, CA)2020-12-12 06:13:50 Test Item Value Reference Range Interpretation Comments NA (test code = 130 mmol/L 135-145 L [id number]) K (test code = 4.6 mmol/L 3.5-5.0 7826152458) CL (test code = 91 mmol/L 98-108 L 0835618175) CO2 TOTAL (test code = 23 mmol/L 23-31 0428987383) AGAP (test code = 2-16 4583355350) BUN (test code = 18 mg/dL 7-23 2659782216) GLUCOSE (test code = 732 mg/dL 70-110 HH 2690804585) CREATININE (test code = 1.30 mg/dL 0.60-1.25 H 1923958771) CALCIUM (test code = 9.5 mg/dL 8.6-10.6 8988734337) eGFR (test code = mL/min/1.73m2 9526955317) JULIO (test code = JULIO) Association of Glomerular Filtration Rate (GFR) and Staging of Kidney Disease* + --+ --+ ------+| GFR (mL/min/1.73 m2) ?| With Kidney Damage ?| ?Without Kidney Damage+ --------+ --------+ +| ?>90 ?| ?Stage one ?| ? Normal ?+ ---+ ---+ -------+| ?60-89 ?| ?Stage two ?| ? Decreased GFR ? + --+ --+ ------+| ?30-59 ?| ?Stage three ?| ? Stage three ? + --+ --+ ------+| ?15-29 ?| ?Stage four ? | ? Stage four ?+ ---+ ---+ -------+| ?<15 (or dialysis) ? ?| ?Stage five ? | ? Stage five ?+ ---+ ---+ -------+ *Each stage assumes the associated GFR level has been in effect for at least three months. ?Stages 1 to 5, with or without kidney disease, indicate chronic kidney disease. Notes: Determination of stages one and two (with eGFR >59mL/min/1.73 m2) requires estimation of kidney damage for at least three months as defined by structural or functional abnormalities of the kidney, manifested by either:Pathological abnormalities or Markers of kidney damage (including abnormalities in the composition of the blood or urine or abnormalities in imaging tests). Lab Interpretation Abnormal (test code = 21646-8) [facility] [place] [facility]AL [id number] 06:11:50 Test Item Value Reference Range Interpretation Comments NT-proBNP (test code 21 pg/mL See_Comment [Autom ated = 3710597932) message] The system which generated this result transmitted reference range : <=125. The reference range was not used to interpret this result as normal/abnormal . JULIO (test code = JULIO) Biotin has been reported to cause a negative bias, interpret results relative to patient's use of biotin. Lab Interpretation Normal (test code = 42685-1) [facility] [place] [facility] ResourcesFIBRINOGEN2021-04-15 06:10:48 Test Item Value Reference Range Interpretation Comments Fibrinogen (test code = 9071956135) 761 mg/dL 214-470 H Lab Interpretation (test code = Abnormal 60733-4) [facility] [place] [facility] ResourcesaPTT2021-04-15 06:10:08 Test Item Value Reference Range Interpretation Comments APTT Patient (test See_Comment [Automat ed code = 3173-2) message] The system which generated this result transmitted reference range : 23 - 38 Seconds . The reference range was not used to interpr et this result as normal/abnormal . JULIO (test code = JULIO) The [facility] patient population mean normal value for aPTT is 30 seconds. Lab Interpretation Normal (test code = 06068-1) [facility] [place] [facility] ResourcesUrinalysis2021-04-15 06:08:28 Test Item Value Reference Range Interpretation Comments APPEARANCE (test code = Clear Clear 3408719675) COLOR (test code = Yellow Yellow 5971668279) PH (test code = 4.8-8.0 3715648622) SP GRAVITY (test code = 1.003-1.030 H 6541813984) GLU U QUAL (test code = 500 mg/dL Normal A 1082260276) BLOOD (test code = Negative Negative 7567374579) KETONES (test code = 20 mg/dL Negative A 9886640987) PROTEIN (test code = 100 mg/dL Negative A 2887-8) UROBILIN (test code = Normal Normal 9188775802) BILIRUBIN (test code = Negative Negative 3480761009) NITRITE (test code = Negative Negative 2357897610) LEUK JAJA (test code = Negative Negative 1222180304) RBC/HPF (test code = See_Comment [Autom ated message] 9904506657) The system [employer] generated this result transmit franck reference range : 0 - 3 HPF. The refe rence range was not u sed to interpret th is result as normal/abnormal . WBC/HPF (test code = <1 See_Comment [Autom ated message] 3461576261) The system [employer] generated this result transmit franck reference range : 0 - 5 HPF. The refe rence range was not u sed to interpret th is result as normal/abnormal . BACTERIA (test code = Few Negative A 6829229246) Lab Interpretation (test Abnormal code = 91212-1) [facility] [place] [facility] ResourcesProthrombin Time (PT) / [id number] 06:08:08 Test Item Value Reference Range Interpretation Comments PROTIME PATIENT (test See_Comment L [Auto mated message] code = 5964-2) The system [employer] generated this result transmitted ref erence range: 12.0 - 1 4.7 Seconds. The reference range was not used to int erpret this result as normal/abnormal . INR (test code = 6301-6) Nor mal INR <1.1; Warfarin Therap eutic range 2.0 to 3. 0 or 2.5 to 3.5, dep ending upon the indica tions. Lab Interpretation (test Abnormal code = 22468-7) [facility] [place] [facility] Resources[facility]atic Function Panel (ALB, T.PRO, BILI T, BU/BC, ALT, AST, ALK PHOS)2020-12-12 06:03:04 Test Item Value Reference Range Interpretation Comments TOTAL BILI (test code = 1327888401) 1.0 mg/dL 0.1-1.1 BILI UNCON (test code = 8149139557) 0.7 mg/dL 0.1-1.1 BILI CONJ (test code = 6481961014) 0.0 mg/dL 0.0-0.3 T PROTEIN (test code = 8660533766) 8.6 g/dL 6.3-8.2 H ALBUMIN (test code = 9819001565) 4.3 g/dL 3.5-5.0 ALK PHOS (test code = 1216872399) 111 U/L 34-122 ALTv (test code = 1742-6) 40 U/L 5-50 AST(SGOT) (test code = 6891183065) 43 U/L 13-40 H Lab Interpretation (test code = Abnormal 92378-4) [facility] [id number] 06:03:04 Test Item Value Reference Range Interpretation Comments LIPASE (test code = 4287094925) 124 U/L 0-220 Lab Interpretation (test code = Normal 17798-9) [facility] [id number] 06:02:48 Test Item Value Reference Range Interpretation Comments LDH (test code = 4371262742) 523 U/L 300-600 Lab Interpretation (test code = Normal 57671-2) [facility] (ID NOW RAPID TESTING)2020-12-12 06:01:07 Test Item Value Reference Range Interpretation Comments SARS-CoV-2 Rapid ID NOW Positive Not Detected A (test code = 06890-4) JULIO (test code = JULIO) ID NOW COVID-19 Assay is an isothermal nucleic acid amplification test intended for the qualitative detection of nucleic acid from SARS-CoV-2 viral RNA in nasopharyngeal (LEAD DATABASE ADMINISTRATOR) specimens. It is used under Emergency Use Authorization (EUA) by FDA. The limit of detection (LOD) of the assay is 125 Genome Equivalents/mL. A positive result is indicative of the presence of SARS-CoV-2 RNA. ?Clinical correlation with patient history and other diagnostic information is necessary to determine patient infection status. A negative (Not Detected) result does not preclude SARS-CoV-2 infection. In patients with clinical symptoms and other tests that are consistent with SARS-CoV-2 infection, negative results should be treated as presumptive negative and a new specimen should be tested with alternative PCR molecular test. Invalid: Please collect a new specimen for repeat patient testing if clinically indicated. Lab Interpretation Abnormal (test code = 96409-6) General acute hospital with [id number] 05:50:45 Test Item Value Reference Range Interpretation Comments WBC (test code = See_Comment [Automated 4991-2) message] The sy stem which generated this result transmitted reference range : 4.20 - 10.70 10*3/?L. The reference range was not used to interpret this result as normal/abnormal . RBC (test code = See_Comment H [Automated 9-8) message] The sy stem which generated this result transmitted reference range : 4.26 - 5.52 10*6/?L. The reference range was not used to interpret this result as normal/abnormal . HGB (test code = 16.3 g/dL 12.2-16.4 718-7) HCT (test code = 50.2 % 38.4-49.3 H 4544-3) MCV (test code = 85.2 fL 81.7-95.6 787-2) MCH (test code = 27.7 pg 26.1-32.7 785-6) MCHC (test code = 32.5 g/dL 31.2-35.0 786-4) RDW-SD (test code = 33.8 fL 38.5-51.6 L 32170-9) RDW-CV (test code = 10.9 % 12.1-15.4 L 788-0) PLT (test code = See_Comment [Automated 777-3) message] The sy stem which generated this result transmitted reference range : 150 - 328 10*3/ ?L. The reference r simon was not used to interpret this result as normal/abnormal . MPV (test code = 10.6 fL 9.8-13.0 22495-8) NRBC/100 WBC (test See_Comment [Automat ed code = 3850570612) message] The system which generated this result transmitted reference range : 0.0 - 10.0 /100 WBCs. The refer ence range was not u sed to interpret th is result as normal/abnormal . NRBC x10^3 (test code <0.01 See_Comment [Auto mated = 7366675254) message] The s ystem which generated this result transmitted reference range : 10*3/?L. The reference range was not used to interpret this result as normal/abnormal . GRAN MAT (NEUT) % 74.4 % (test code = 770-8) IMM GRAN % (test code 0.60 % = 9009212986) LYMPH % (test code = 16.8 % 736-9) MONO % (test code = 8.0 % 5905-5) EOS % (test code = 0.0 % 713-8) BASO % (test code = 0.2 % 706-2) GRAN MAT x10^3(ANC) 3.99 10*3/uL 1.99-6.95 (test code = 9728463455) IMM GRAN x10^3 (test 0.03 10*3/uL 0.00-0.06 code = 7112036050) LYMPH x10^3 (test code 0.90 10*3/uL 1.09-3.23 L = 731-0) MONO x10^3 (test code 0.43 10*3/uL 0.36-1.02 = 742-7) EOS x10^3 (test code = <0.03 0.06-0.53 L 711-2) BASO x10^3 (test code <0.03 0.01-0.09 = 704-7) Lab Interpretation Abnormal (test code = 63349-7) [facility]
[2023-06-06] MEDS ORDERED: ONDANSETRON 4 MG/2 ML VIAL ONE (14:49)
[2023-06-06] MEDS ORDERED: NA CHLORIDE 0.9% 1,000 ML ONE ×2 (14:49→16:39)
[2023-06-06 15:05] LABS: Hematocrit 48.8 % (39.6-49.0); Lymphocytes % 39.6 % (15.3-44.8); MPV 7.5 fL (7.6-11.3); Platelets 400 thou/uL (152-406); RBC Red Blood Cell Count 5.55 M/uL (4.33-5.43)
--- NOTE | 2023-06-06 15:39 | RAD REPORT ---
EXAM DESCRIPTION: RAD - Chest Single View - 06/06/2023 3:04 pm CLINICAL HISTORY: DYSPNEA COMPARISON: Chest Single View dated 05/05/2023; Chest Single View dated 11/24/2022; Chest Pa And Lat (2 Views) dated 03/07/2018 FINDINGS: Lines: None. Lungs: No evidence of edema or pneumonia. Pleural: No significant pleural effusions or pneumothorax. Cardiac: The heart size is within normal limits. Mediastinum: Within normal limits. Bones: No acute fractures. Other: None IMPRESSION: No acute cardiopulmonary disease.
[2023-06-06 15:46] LABS: Bilirubin Total 1.6 mg/dL (0.2-1.0); Protein, Total 9.1 g/dL (6.4-8.2)
[2023-06-06 16:00] LABS: Thyroid Stimulating Hormone 2.05 uIU/mL (0.358-3.740)
--- NOTE | 2023-06-06 16:25 | RAD REPORT ---
EXAM DESCRIPTION: CTAbdomen Pelvis Wo Contrast - 06/06/2023 4:14 pm CLINICAL HISTORY: ABD PAIN COMPARISON: No comparisons TECHNIQUE: CT of the abdomen and pelvis was performed. All CT scans are performed using dose optimization technique as appropriate and may include automated exposure control or mA/KV adjustment according to patient size. FINDINGS: Lower chest: No acute abnormality. Liver: No acute abnormality or suspicious lesions. Biliary: No biliary ductal dilatation. Stomach: No significant focal abnormality. Duodenum: No significant focal abnormality. Pancreas: No significant abnormality. Spleen: No significant abnormality. Adrenal: No suspicious lesions. Kidney/ureter: No hydronephrosis. No renal calculi. Retroperitoneum: No retroperitoneal adenopathy. Vascular: No aneurysm. Bowel: No significant focal abnormality. Normal appendix. Peritoneum: No ascites or free air. Bladder: Grossly unremarkable. Reproductive: No adnexal masses. Bones: No acute fracture. Other: n/a IMPRESSION: No acute intra-abdominal or pelvic finding.
[2023-06-06] MEDS ORDERED: INSULIN REGULAR (HUMAN) 100 UNIT/ML ONE ×2 (16:38→22:42)
--- NOTE | 2023-06-06 16:42 | EDPHYS ---
Physician Documentation [facility] Name: Sivakumar Aguiar Jr Age: 42 yrs Sex: Male : 1980 Arrival Date: 06/06/2023 Time: 14:09 Bed 4 Private MD: ED Physician Enmanuel Olivo HPI: 06/06 16:37 This 42 yrs old Black Male presents to ER via Ambulatory with complaints of Weakness. rn 16:37 The patient presents to the emergency department with weakness of the entire body, rn generalized weakness. Onset: The symptoms/episode began/occurred 2 day(s) ago. Associated signs and symptoms: Pertinent positives: nausea, weakness, Pertinent negatives: fever. Severity of symptoms: At their worst the symptoms were moderate in the emergency department the symptoms are unchanged. The patient has not experienced similar symptoms in the past. Patient recently switched to Ozempic from insulin. Since switching he has felt generalized weakness and malaise, nausea, abdominal pain, glucose ranging from 200-300s. Reports unable to go to bathroom have bowel movement but is passing gas.. Historical: - Allergies: 14:22 No Known Allergies; ll1 - PMHx: 14:22 diabetes mellitus; Hypothyroidism; Pernicious Anemia; ll1 - Immunization history:: Adult Immunizations up to date. - Social history:: Smoking status: Patient denies any tobacco usage or history of. - Family history:: not pertinent. - Hospitalizations: : No recent hospitalization is reported. ROS: 16:37 Constitutional: Negative for fever, chills, and weight loss, Eyes: Negative for injury, rn pain, redness, and discharge, Cardiovascular: Positive for palpitations Respiratory: Negative for shortness of breath, cough, wheezing, and pleuritic chest pain, Abdomen/GI: Positive for abdominal pain and nausea and constipation Back: Negative for injury and pain, MS/Extremity: Negative for injury and deformity, Skin: Negative for injury, rash, and discoloration, Neuro: Positive for generalized weakness Exam: 16:37 Constitutional: This is a well developed, well nourished patient who is awake, alert, rn and in no acute distress. Head/Face: Normocephalic, atraumatic. ENT: Dry mucous membranes Cardiovascular: Tachycardic, regular. Respiratory: No increased work of breathing, no retractions or nasal flaring. Abdomen/GI: Soft, non-tender MS/ Extremity: Pulses equal, no cyanosis. Neuro: Awake and alert, GCS 15, oriented to person, place, time, and situation. Cranial nerves II-XII grossly intact. Motor strength 5/5 in all extremities. Sensory grossly intact. Vital Signs: 14:18 BP 105 / 77; Pulse 138; Resp 18; Temp 98.1; Pulse Ox 95% on R/A; Pain 2/10; ll1 14:53 BP 104 / 82; Pulse 105; Resp 16; Pulse Ox 100% on R/A; mb9 15:23 BP 101 / 78; Pulse 103; Resp 16; Pulse Ox 99% on R/A; mb9 17:42 BP 110 / 74; Pulse 102; Resp 17; Pulse Ox 100% on R/A; mb9 18:39 BP 120 / 78; Pulse 100; Resp 18; Pulse Ox 100% on R/A; Pain 0/10; mb9 14:18 Pain Scale: Adult ll1 18:39 Pain Scale: Adult mb9 MDM: 14:13 Patient medically screened. rn 16:37 Data reviewed: vital signs, nurses notes, lab test result(s), EKG, radiologic studies, rn CT scan, and as a result, I will admit patient. Consideration of Admission/Observation Patient was admitted/placed on observation. Escalation of care including admission/observation considered. Management of patient was discussed with the following: Hospitalist: . Counseling: I had a detailed discussion with the patient and/or guardian regarding the historical points, exam findings, and any diagnostic results supporting the discharge/admit diagnosis, lab results, radiology results, the need for further work-up and treatment in the hospital. 06/06 14:25 Order name: CBC with Diff; Complete Time: 16:04 rn 06/06 14:25 Order name: CMP; Complete Time: 16:04 rn 06/06 14:25 Order name: Lipase; Complete Time: 16: rn 06/06 14:26 Order name: BNP; Complete Time: 16:04 rn 06/06 14:26 Order name: TSH; Complete Time: 16:04 rn 06/06 14:26 Order name: T4 Free; Complete Time: 16:04 rn 06/06 14:28 Order name: Urinalysis w/ reflexes; Complete Time: 20:01 rn 06/06 14:43 Order name: Troponin High Sensitivity; Complete Time: 16:27 rn 06/06 18:07 Order name: CBC with Automated Diff EDMS 06/06 18:07 Order name: CBC with Automated Diff EDMS 06/06 18:07 Order name: Comprehensive Metabolic Panel EDMS 06/06 18:07 Order name: Comprehensive Metabolic Panel EDMS 06/06 18:07 Order name: Protime (+INR) EDMS 06/06 18:07 Order name: Protime (+INR) EDMS 06/06 18:07 Order name: PTT, Activated Partial Thromb EDMS 06/06 18:07 Order name: PTT, Activated Partial Thromb EDMS 06/06 19:31 Order name: BETA HYDROXYBUTYRATE; Complete Time: 20:01 EDMS 06/06 14:26 Order name: XRAY Chest (1 view); Complete Time: 16:04 rn 06/06 15:53 Order name: Abdomen ; Complete Time: 16:27 EDMS 06/06 14:25 Order name: EKG; Complete Time: 14:25 rn 06/06 14:25 Order name: IV Saline Lock; Complete Time: 14:54 rn 06/06 14:25 Order name: Labs collected and sent; Complete Time: 14:54 rn 06/06 14:25 Order name: Glucose Level; Complete Time: 14:55 rn 06/06 14:25 Order name: EKG - Nurse/Tech; Complete Time: 14:54 rn Administered Medications: 14:30 Drug: NS 0.9% IV 1000 ml IV at 1 bolus Per protocol; 1000 mL bolus Route: IV; Rate: 1 mb9 bolus; Site: left antecubital; 14:35 Drug: Ondansetron IVP 4 mg IVP once; over 2 minutes Route: IVP; Site: left antecubital; mb9 16:32 Follow up: Response: No adverse reaction mb9 16:25 Drug: NS 0.9% IV 1000 ml IV at 1000 ml once Route: IV; Rate: 1000 ml; Site: left mb9 antecubital; 17:53 Follow up: Response: No adverse reaction; IV Status: Completed infusion mb9 16:25 Drug: Insulin Regular Human Sub-Q 10 units Sub-Q once {Co-Signature: eva1 (Iqra Valles mb9 RN).} Route: Sub-Q; Site: left lower abdomen; 17:53 Follow up: Response: No adverse reaction mb9 Point of Care Testing: Blood Glucose: 17:46 Blood Glucose: 195 mg/dL; nj1 17:46 Per patients glucose implanted monitor nj1 Ranges: Critical Glucose Levels:Adult <50 mg/dl or >400 mg/dl <40 mg/dl or >180 mg/dl Disposition Summary: 06/06/23 16:42 Hospitalization Ordered Notes: Hospitalization Status: Inpatient Admission rn Provider: Maicol Chauhan rn Condition: Stable rn Problem: new rn Symptoms: have improved rn Bed/Room Type: Standard rn Location: Intensive Care Unit(06/06/23 19:18) mw Room Assignment: 7-(06/06/23 19:18) mw Diagnosis - Acute kidney failure, unspecified rn - Hyperglycemia, unspecified rn - Acidosis rn Forms: - Medication Reconciliation Form rn - SBAR form rn - Leadership Thank You Letter rn Signatures: Dispatcher [employer] EDMS Pita Garcia RN RN Enmanuel Olivo MD MD rn Lewis, Lynsay, RN RN 1 Francine Steiner PA-C PA-C sb4 Miranda Carias RN RN mb9 Iqra Valles RN nj1 Corrections: (The following items were deleted from the chart) 15:53 14:25 Abdomen Pelvis W Con+CT.RAD.BRZ ordered. EDMN EDMN 19:18 16:42 Telemetry/MedSurg (Inpatient) rn mw 19:18 16:42 rn 20:20 16:37 BETA HYDROXYBUTYRATE+C.LAB.BRZ ordered. misbah as6
--- NOTE | 2023-06-06 16:42 | ER ---
Nurse's Notes [facility] Name: Sivakumar Aguiar Jr Age: 42 yrs Sex: Male : 1980 Arrival Date: 06/06/2023 Time: 14:09 Bed 4 Private MD: Diagnosis: Acute kidney failure, unspecified;Hyperglycemia, unspecified;Acidosis Presentation: 06/06 14:18 Chief complaint: Patient states: Started Ozempic 10 days ado. Fatigue, dry mouth, ll1 frequent urination, Nausea, belching. Coronavirus screen: Client denies travel out of the [place] in the last 14 days. At this time, the client does not indicate any symptoms associated with coronavirus-19. Ebola Screen: Patient denies travel to an Ebola-affected area in the 21 days before illness onset. No acute neurological deficit is noted. Initial Sepsis Screen: Does the patient meet any 2 criteria? HR > 90 bpm. Yes Does the patient have a suspected source of infection? Yes: Acute abdominal pain. Risk Assessment: Do you want to hurt yourself or someone else? Patient reports no desire to harm self or others. Onset of symptoms was May 30, 2023. 14:18 Method Of Arrival: Ambulatory ll1 14:18 Acuity: MEGHANN 2 ll1 Triage Assessment: 14:22 The onset of the patients symptoms was more than six hours ago. General: Appears ll1 uncomfortable, ill, Behavior is calm, cooperative, appropriate for age. General: Reports feeling ill for fatigue for. Pain: Complains of pain in body Pain currently is 5 out of 10 on a pain scale. Quality of pain is described as aching. EENT: Reports dry mouth. Neuro: Reports weakness. GI: Reports constipation, nausea, vomiting. : Reports urinary frequency. Stroke Activation: Symptom onset > 6 hours Physician: Stroke Attending; Name: ; Notified At: ; Arrived At: Physician: Chief Stroke Resident; Name: ; Notified At: ; Arrived At: Physician: Stroke Resident; Name: ; Notified At: ; Arrived At: Physician: ED Attending; Name: ; Notified At: ; Arrived At: Physician: ED Resident; Name: ; Notified At: ; Arrived At: Historical: - Allergies: 14:22 No Known Allergies; ll1 - PMHx: 14:22 diabetes mellitus; Hypothyroidism; Pernicious Anemia; ll1 - Immunization history:: Adult Immunizations up to date. - Social history:: Smoking status: Patient denies any tobacco usage or history of. - Family history:: not pertinent. - Hospitalizations: : No recent hospitalization is reported. Screenin:53 [facility] ED Fall Risk Assessment (Adult) History of falling in the last 3 months, mb9 including since admission No falls in past 3 months (0 pts) Confusion or Disorientation No (0 pts) Intoxicated or Sedated No (0 pts) Impaired Gait No (0 pts) Mobility Assist Device Used No (0 pt) Altered Elimination No (0 pt) Score/Fall Risk Level 0 - 2 = Low Risk Oriented to surroundings, Maintained a safe environment, Educated pt \T\ family on fall prevention, incl call for assistance when getting out of bed. Abuse screen: Denies threats or abuse. Nutritional screening: No deficits noted. Tuberculosis screening: No symptoms or risk factors identified. Assessment: 14:52 General: Appears in no apparent distress. Behavior is calm, cooperative. Pain: mb9 Complains of pain in chest Pain does not radiate. Quality of pain is described as throbbing, Aggravated by increased activity, repositioning, weight bearing. Neuro: Snyder Agitation-Sedation Scale (RASS): 0 - Alert and Calm Level of Consciousness is awake, alert, obeys commands, Oriented to person, place, time, situation, Appropriate for age. Neuro: Reports weakness. Cardiovascular: Heart tones S1 S2 present Patient's skin is warm and dry. Rhythm is sinus tachycardia. Respiratory: Reports shortness of breath Airway is patent Respiratory effort is even, unlabored, Respiratory pattern is regular, symmetrical, Breath sounds are clear bilaterally. GI: Abdomen is round non-distended, Bowel sounds present X 4 quads. Abd is soft and non tender X 4 quads. Reports constipation, nausea, vomiting. : No signs and/or symptoms were reported regarding the genitourinary system. EENT: No signs and/or symptoms were reported regarding the EENT system. Derm: Skin is pink, warm \T\ dry. Musculoskeletal: Range of motion: intact in all extremities. 15:53 Reassessment: No changes from previously documented assessment. Patient and/or family mb9 updated on plan of care and expected duration. Pain level reassessed. Patient is alert, oriented x 3, equal unlabored respirations, skin warm/dry/pink. 17:00 Reassessment: Patient and/or family updated on plan of care and expected duration. Pain mb9 level reassessed. Patient is alert, oriented x 3, equal unlabored respirations, skin warm/dry/pink. Patient states feeling better. Patient states symptoms have improved. 18:00 Reassessment: No changes from previously documented assessment. Patient and/or family mb9 updated on plan of care and expected duration. Pain level reassessed. Patient is alert, oriented x 3, equal unlabored respirations, skin warm/dry/pink. Vital Signs: 14:18 BP 105 / 77; Pulse 138; Resp 18; Temp 98.1; Pulse Ox 95% on R/A; Pain 2/10; ll1 14:53 BP 104 / 82; Pulse 105; Resp 16; Pulse Ox 100% on R/A; mb9 15:23 BP 101 / 78; Pulse 103; Resp 16; Pulse Ox 99% on R/A; mb9 17:42 BP 110 / 74; Pulse 102; Resp 17; Pulse Ox 100% on R/A; mb9 18:39 BP 120 / 78; Pulse 100; Resp 18; Pulse Ox 100% on R/A; Pain 0/10; mb9 14:18 Pain Scale: Adult ll1 18:39 Pain Scale: Adult mb9 ED Course: 14:10 Patient arrived in ED. rg4 14:13 Enmanuel Olivo MD is Attending Physician. rn 14:22 Triage completed. ll1 14:33 Miranda Carias, RN is Primary Nurse. mb9 14:35 Arm band placed on Patient placed in an exam room, on a stretcher. ll1 14:53 Placed in gown. Bed in low position. Call light in reach. Side rails up X 1. Client mb9 placed on continuous cardiac and pulse oximetry monitoring. NIBP monitoring applied. ekg monitor tech on. Door closed. Noise minimized. Warm blanket given. 14:54 No provider procedures requiring assistance completed. EKG done, by ED staff, reviewed mb9 by Enmanuel Olivo MD. Inserted saline lock: 18 gauge in left antecubital area, using aseptic technique. 14:54 Troponin High Sensitivity Sent. mb9 14:54 T4 Free Sent. mb9 14:54 TSH Sent. mb9 14:54 BNP Sent. mb9 14:54 CBC with Diff Sent. mb9 14:54 CMP Sent. mb9 14:54 Lipase Sent. mb9 15:05 XRAY Chest (1 view) In Process Unspecified. EDMS 16:16 Abdomen In Process Unspecified. EDMS 16:41 Maicol Chauhan is Hospitalizing Provider. rn 18:39 Patient admitted, IV remains in place. mb9 Administered Medications: 14:30 Drug: NS 0.9% IV 1000 ml IV at 1 bolus Per protocol; 1000 mL bolus Route: IV; Rate: 1 mb9 bolus; Site: left antecubital; 14:35 Drug: Ondansetron IVP 4 mg IVP once; over 2 minutes Route: IVP; Site: left antecubital; mb9 16:32 Follow up: Response: No adverse reaction mb9 16:25 Drug: NS 0.9% IV 1000 ml IV at 1000 ml once Route: IV; Rate: 1000 ml; Site: left mb9 antecubital; 17:53 Follow up: Response: No adverse reaction; IV Status: Completed infusion mb9 16:25 Drug: Insulin Regular Human Sub-Q 10 units Sub-Q once {Co-Signature: nj1 (Iqra Valles RN).} Route: Sub-Q; Site: left lower abdomen; 17:53 Follow up: Response: No adverse reaction mb9 Medication: 18:39 VIS not applicable for this client. mb9 Point of Care Testing: Blood Glucose: 17:46 Blood Glucose: 195 mg/dL; nj1 17:46 Per patients glucose implanted monitor nj1 Ranges: Outcome: 16:42 Decision to Hospitalize by Provider. rn 19:49 Admitted to ICU accompanied by nurse, family with patient, via wheelchair, room 7, with bp chart, Report called to CARLIN SANTOS 19:49 Condition: stable 19:49 Instructed on the need for admit, 20:20 Patient left the ED. as6 Signatures: Dispatcher [employer] EDMS Enmanuel Olivo MD MD rn Garcia, Rubi rg4 Nic Morris RN RN bp Lewis, Lynsay, RN RN ll1 Bhupinder Whaley RN RN as6 Miranda Carias RN RN mb9 Iqra Valles RN RN nj1 Iqra Valles RN nj1 Corrections: (The following items were deleted from the chart) 14:45 14:44 Arm band placed on Patient placed in an exam room, on a stretcher, ll1 ll1 20:20 17:53 BETA HYDROXYBUTYRATE+C.LAB.BRZ drawn and sent. mb9 as6
[2023-06-06] MEDS ORDERED: ACETAMINOPHEN 500 MG TAB PO PRN (18:03)
[2023-06-06] MEDS ORDERED: ONDANSETRON 4 MG/2 ML VIAL IV PRN (18:03)
[2023-06-06] MEDS ORDERED: MORPHINE 2 MG/ML SYR IV PRN (18:03)
[2023-06-06 18:44] LABS: Specific Gravity 1.025 (1.005-1.030); Urine Bacteria None Seen /HPF (<20); Urine Bilirubin NEGATIVE (Negative); Urine Blood Negative (Negative); Urine Clarity Clear (Clear); Urine Color Light-Yellow (Yellow); Urine Glucose 4+ (Over) (Negative); Urine Mucus Slight /HPF (None Seen); Urine Protein TRACE (Negative); Urine RBC <5 /HPF (None Seen); Urine Urobilinogen Normal (Normal); Urine pH 5.5 (5.0-7.0)
--- NOTE | 2023-06-06 18:44 | P.HP ---
Certification for Inpatient Patient admitted to: Observation With expected LOS: <2 Midnights Patient will require the following post-hospital care: None Practitioner: I am a practitioner with admitting privileges, knowledge of patient current condition, hospital course, and medical plan of care. Services: Services provided to patient in accordance with Admission requirements found in Title 42 Section 412.3 of the Code of Federal Regulations Patient History Date of Service: 06/06/23 Reason for admission: Generalized weakness; metabolic acidosis secondary to DKA vs. CRYSTAL History of Present Illness: Patient is a 42-year-old gentleman who came to the hospital with a generalized weakness and malaise. Patient has a history of type 1 diabetes and was worked up for a stroke a few weeks ago. Patient had vertigo symptoms which resolved after taking meclizine. Patient had been doing well and had seen his primary care provider who started patient on Ozempic along with Synjardy XR. Patient states that he lost his appetite and he feels like everything slowed down in his GI tract. He really did not want to eat he eat hardly at all. He was having p olyuria. He felt constipated. He was felt to go to work but he just did not have the energy to do anything so his brought him into the emergency room. His work-up in the emergency room showed acute renal failure. Patient's creatinine is 2.66. Patient has anion gap metabolic acidosis. This may be related to his acute renal insufficiency versus mild DKA. Patient will be admitted to ICU. We will aggressively hydrate patient. Patient may need an insulin drip. We will repeat renal function in the morning. Allergies No Known Allergies Allergy (Unverified 03/07/18 22:25) Home Medications: Cyanocobalamin [Vitamin B-12*] 1,000 mcg SQ SEECOM #4 vial 03/09/18 Levothyroxine [Synthroid*] 125 mcg PO [id number] #30 tab 03/09/18 Aspirin [Aspirin EC 81 MG] 81 mg PO DAILY #30 tab 05/06/23 Atorvastatin Calcium [Lipitor] 40 mg PO BEDTIME #30 tab 05/06/23 - Past Medical/Surgical History Diabetic: No -: hypothyroidism -: vertigo -: HTN -: Type 1 diabetes -: tonsillectomy - Family History Father Medical History: Other (see notes) Notes: thyroid problems Mother Medical History: Heart disease, Stroke Notes: stent 5 - Social History Smoking Status: Former smoker Alcohol use: No CD- Drugs: No Caffeine use: Yes Review of Systems 10-point ROS is otherwise unremarkable Physical Examination - Vital Signs Temperature: 98 F (reviewed) - Physical Exam General: Alert, In no apparent distress, Oriented x3 HEENT: Atraumatic, PERRLA, Mucous membr. moist/pink, EOMI, Sclerae nonicteric Neck: Supple, 2+ carotid pulse no bruit, No LAD, Without JVD or thyroid abnormality Respiratory: Clear to auscultation bilaterally, Normal air movement Cardiovascular: Regular rate/rhythm, Normal S1 S2 Gastrointestinal: Normal bowel sounds, Soft and benign, Non-distended, No tenderness Musculoskeletal: No clubbing, No swelling, No tenderness Integumentary: No rashes Neurological: Normal gait, Normal speech, Normal strength at 5/5 x4 extr, Normal tone, Sensation intact, Cranial nerves 3-12 intact, Normal affect Lymphatics: No axilla or inguinal lymphadenopathy - Studies Laboratory Data (last 24 hrs) 06/06/23 06/06/23 14:49 14:49 WBC 5.00 Hgb 16.6 Hct 48.8 Plt Count 400 Sodium 130 L Potassium 4.0 BUN 47 H Creatinine 2.66 H Glucose 271 H Total Bilirubin 1.6 H AST 8 L ALT 16 Alkaline Phosphatase 64 Lipase 37 Assessment & Plan - Problems (Diagnosis) (1) DKA (diabetic ketoacidosis) Current Visit: Yes Status: Acute (2) CRYSTAL (acute kidney injury) Current Visit: Yes Status: Acute (3) Increased anion gap metabolic acidosis Current Visit: Yes Status: Acute - Plan 1. Continue with insulin drip 2. Continue with aggressive IV hydration 3. Monitor hemoglobin A1c 4. Blood sugars every hour 5. Check BMP every 6 hours 6. Carpet Floor Layer Apprentice regarding blood sugars 7. Repeat acetone level in a.m. 8. GI DVT prophylaxis Discharge Plan: Home Plan to discharge in: 24 Hours - Advance Directives Does patient have a Living Will: No Does patient have a Durable POA for Healthcare: No - Code Status/Comfort Care Code Status Assessed: Yes Code Status: Full Code Critical Care: No Time Spent Managing PTS Care (In Minutes): 45
[2023-06-06] MEDS ORDERED: NA CHLORIDE 0.9% 1,000 ML IV SCH (19:00)
[2023-06-06 20:47] VITALS: BMI 33.2
[2023-06-06 21:35] VITALS: O2SAT 100
[2023-06-06] MEDS ORDERED: D50W 25 GM/50 ML SYRINGE IV PRN (21:43)
[2023-06-06] MEDS ORDERED: GLUCAGON 1 MG/VIAL IM PRN (21:43)
[2023-06-06] MEDS ORDERED: INSULIN -REGULAR HUMAN 100 UNIT in NA CHLORIDE 0.9% 100 ML IV SCH (21:45)
--- NOTE | 2023-06-06 21:54 | P.PN ---
Date of Service: 06/06/23 Labs reviewed. Beta hydroxybutyrate was elevated. Go ahead and start patient on insulin drip. Change fluids to D5 NS at 150 cc an hour. Repeat labs now and every 4 hours. Patient not having any nausea vomiting. Will allow him to eat as tolerated. Monitor labs closely. A1c pending in the morning as well.
[2023-06-06] MEDS ORDERED: D10W 125 ML IV PRN (21:57)
[2023-06-06] MEDS: D5 0.9 NS 1,000 ML IV SCH (22:34)
[2023-06-06] MEDS ORDERED: NA CHLORIDE 0.9% 100 ML ONE (22:42)
[2023-06-06 22:44] LABS: Potassium 3.7 mEq/L (3.5-5.1)
[2023-06-07 02:30] LABS: Potassium 3.6 mEq/L (3.5-5.1)
[2023-06-07 03:13] LABS: Magnesium 2.6 mg/dL (1.6-2.4)
[2023-06-07] MEDS: D5 0.9 NS 1,000 ML IV SCH ×2 (05:23→11:20)
[2023-06-07 05:58] LABS: Absolute Lymphocytes (CBC) 1.4 K/uL (0.7-4.9); Hematocrit 41.1 % (39.6-49.0); Lymphocytes % 37.1 % (15.3-44.8); MCV 87.1 fL (80-100); MPV 7.1 fL (7.6-11.3); Platelets 297 thou/uL (152-406); RBC Red Blood Cell Count 4.72 M/uL (4.33-5.43)
[2023-06-07 06:01] LABS: Protime INR 0.85
[2023-06-07 06:15] LABS: Albumin 3.2 g/dL (3.4-5.0); BETA HYDROXYBUTYRATE 1.66 mmol/L (0.02-0.27); Bilirubin Direct 0.2 mg/dL (0-0.2); Bilirubin Total 0.9 mg/dL (0.2-1.0); Potassium 3.2 mEq/L (3.5-5.1)
--- NOTE | 2023-06-07 10:57 | P.PN ---
Subjective Date of Service: 06/07/23 Chief Complaint: Generalized weakness; metabolic acidosis secondary to DKA vs. CRYSTAL No acute events overnight. He states that he feels well this morning. He remains on an insulin drip. He reports that his symptoms started after initiating SQ semaglutide, which he believes is the cause of his DKA. He denies any nausea, vomiting, or diarrhea. Review of Systems 10-point ROS is otherwise unremarkable Physical Examination - Vital Signs Temperature: 96.6 F Blood Pressure: 123/78 Pulse: 88 Respirations: 15 Pulse Ox (%): 97 - Physical Exam General: Alert, In no apparent distress, Oriented x3 HEENT: Atraumatic, Mucous membr. moist/pink, Sclerae nonicteric Neck: JVD not distended Respiratory: Clear to auscultation bilaterally, Normal air movement Cardiovascular: No edema, Regular rate/rhythm, Normal S1 S2, No gallops, No rubs, No murmurs Gastrointestinal: Normal bowel sounds, Soft and benign, Non-distended, No tenderness, No rebound, No guarding Musculoskeletal: No clubbing Integumentary: No rashes Neurological: Normal speech, Normal affect - Studies Laboratory Data (last 24 hrs) 06/06/23 06/06/23 14:49 14:49 WBC 5.00 Hgb 16.6 Hct 48.8 Plt Count 400 Sodium 130 L Potassium 4.0 BUN 47 H Creatinine 2.66 H Glucose 271 H Total Bilirubin 1.6 H AST 8 L ALT 16 Alkaline Phosphatase 64 Lipase 37 Assessment And Plan - Plan # Diabetic Ketoacidosis in Type II Diabetes Mellitus # SIRS Criteria (Tachycardia, Tachypnea) due to above - no evidence of infection - Evaluation thus far: - Initial glucose = 271 - Initial bicarbonate = 16 - Initial AGAP = 19 - BHB = > 4.50 - Hgb A1c = pending - CT abdomen/pelvis = "no acute intra-abdominal or pelvic finding." - Chest x-ray = "No acute cardiopulmonary disease" - Management plan: - Continue IV fluids and insulin drip per DKA protocol - If glucose remains controlled and AGAP remains closed, plan to transition from insulin drip to SQ insulin and downgrade out of ICU today # KDIGO Stage II Acute Kidney Injury due to Dehydration from DKA - Creatinine = 2.66 -> 1.99 -> 2.03 -> 1.68 (baseline creatinine ~1.2) - Urinalysis = 4+ glucose, 2+ ketones, trace protein - IV fluids as mentioned above - Monitor creatinine and urine output - If worsening, obtain renal ultrasound - Renally dose medications # Abnormal Thyroid Function Tests with History of Hypothyroidism - TSH 2.050, Free T4 1.61 - May be due to acute illness vs over-medication. Remains asymptomatic. Follow- up with PCP for repeat labs and medication dose adjustment # Hypertension # Dyslipidemia - Reconcile home medications once verified. Roly Arriaga M.D.
[2023-06-07 11:13] LABS: Magnesium 2.3 mg/dL (1.6-2.4); Potassium 3.8 mEq/L (3.5-5.1)
[2023-06-07] MEDS ORDERED: D50W 25 GM/50 ML SYRINGE IV PRN (11:46)
[2023-06-07] MEDS ORDERED: GLUCAGON 1 MG/VIAL IM ONE (11:46)
--- NOTE | 2023-06-07 12:16 | EKG ---
Test Date: 2023-06-06 Test Time: 14:45:17 Scrap Hoist Operator: NITISH MEASUREMENT RESULTS: Intervals: Rate: 116 MN: 124 QRSD: 84 QT: 304 QTc: 422 [place]: P: 65 MN: 124 QRS: 50 T: 39 INTERPRETIVE STATEMENTS: Sinus tachycardia Otherwise normal ECG Compared to ECG 05/05/2023 18:19:23 Sinus rhythm no longer present Sinus arrhythmia no longer present Electronically Signed On 06-07-23 12:14:35 CDT by Farhan Britton
[2023-06-07] MEDS: INSULIN GLARGINE 100 UNIT/ML SQ SCH (12:49)
[2023-06-07 14:52] LABS: Magnesium 2.4 mg/dL (1.6-2.4); Potassium 3.7 mEq/L (3.5-5.1)
[2023-06-07] MEDS: INSULIN REGULAR (HUMAN) 100 UNIT/ML SQ SCH ×2 (16:56→21:23)
[2023-06-07 18:42] LABS: Magnesium 2.2 mg/dL (1.6-2.4); Potassium 4.1 mEq/L (3.5-5.1)
[2023-06-08 05:15] LABS: Albumin 3.5 g/dL (3.4-5.0); Bilirubin Direct 0.2 mg/dL (0-0.2); Bilirubin Total 0.8 mg/dL (0.2-1.0); Magnesium 2.3 mg/dL (1.6-2.4); Phosphorus 1.8 mg/dL (2.5-4.9); Potassium 3.4 mEq/L (3.5-5.1); Protein, Total 7.4 g/dL (6.4-8.2)
[2023-06-08] MEDS: INSULIN REGULAR (HUMAN) 100 UNIT/ML SQ SCH ×2 (07:30→11:30)
[2023-06-08] MEDS ORDERED: POTASSIUM PHOS IN 0.9 % NACL 15 MMOL/250 ML BAG IV ONE (08:15)
[2023-06-08] MEDS: INSULIN GLARGINE 100 UNIT/ML SQ SCH (11:46)
[2023-06-08 12:47] LABS: Potassium 3.6 mEq/L (3.5-5.1)
--- NOTE | 2023-06-08 12:55 | P.DS ---
Admission Date: 06/06/23 Discharge Date: 06/08/23 Disposition: ROUTINE DISCHARGE Discharge Condition: GOOD Reason for Admission: Generalized weakness; metabolic acidosis secondary to DKA vs. CRYSTAL Hospital Course: DIAGNOSES: # Euglycemic Diabetic Ketoacidosis in Type II Diabetes Mellitus due to SGLT-2 Inhibitor Use # SIRS Criteria (Tachycardia, Tachypnea) due to above - no evidence of infection # KDIGO Stage II Acute Kidney Injury due to Dehydration from DKA # Abnormal Thyroid Function Tests with History of Hypothyroidism # Hypertension # Dyslipidemia HOSPITAL COURSE: Mr. Sivakumar Aguiar is a pleasant 42 year old male with a past medical history significant for type II diabetes mellitus, hypothyroidism, hypertension, and dyslipidemia who was admitted to the [facility] on 06/06/2023 for diabetic ketoacidosis. He was admitted to the Medicine service. Upon further evaluation, he was found to be in euglycemic diabetic ketoacidosis and noted to have an acute kidney injury. He was treated with IV fluids and IV insulin drip per DKA protocol. Over the course of his hospitalization, his glucose stabilized, his creatinine improved, and his anion gap closed. He was transitioned to SQ insulin and did well. Today, he stated that he feels significantly better and would like to be discharged home. On 06/08/2023, he was seen on rounds and deemed medically stable for discharge. He was discharged with instructions to schedule follow-up appointments with his PCP (Dr. Santana) and with Endocrinology. He was given the opportunity to ask questions and reported no further questions. Furthermore, all questions were answered to the best of my ability. A copy of this discharge summary will be sent to the above providers to facilitate continuity of care. Today, I personally spent 25 minutes on his case, of which greater than 50% of the time was spent in patient education, counseling, and coordination of care as described above. Vital Signs/Physical Exam: Temp Pulse Resp BP Pulse Ox 97.6 F 96 19 123/77 99 06/07/23 23:00 06/08/23 06:00 06/08/23 06:00 06/08/23 05:00 06/08/23 03:00 General: Alert, In no apparent distress, Oriented x3 HEENT: Atraumatic, Mucous membr. moist/pink, Sclerae nonicteric Neck: JVD not distended Respiratory: Clear to auscultation bilaterally, Normal air movement Cardiovascular: No edema, Regular rate/rhythm, Normal S1 S2, No gallops, No rubs, No murmurs Gastrointestinal: Normal bowel sounds, Soft and benign, Non-distended, No tenderness, No rebound, No guarding Musculoskeletal: No clubbing Integumentary: No rashes Neurological: Normal speech, Normal affect Laboratory Data at Discharge: WBC 3.70 thou/uL (4.3-10.9) L 06/07/23 05:43 Hgb 14.0 g/dL (13.6-17.9) D 06/07/23 05:43 Hct 41.1 % (39.6-49.0) 06/07/23 05:43 Plt Count 297 thou/uL (152-406) 06/07/23 05:43 PT 9.3 SECONDS (9.5-12.5) L 06/07/23 05:43 INR 0.85 06/07/23 05:43 APTT 28.8 SECONDS (24.3-36.9) 06/07/23 05:43 Sodium 140 mEq/L (136-145) 06/08/23 04:10 Potassium 3.6 mEq/L (3.5-5.1) 06/08/23 12:16 BUN 14 mg/dL (7-18) 06/08/23 04:10 Creatinine 1.30 mg/dL (0.70-1.30) 06/08/23 04:10 Glucose 110 mg/dL (74-106) H 06/08/23 04:10 Phosphorus 3.0 mg/dL (2.5-4.9) 06/08/23 12:16 Magnesium 2.3 mg/dL (1.6-2.4) 06/08/23 04:10 Total Bilirubin 0.8 mg/dL (0.2-1.0) 06/08/23 04:10 AST 13 U/L (15-37) L 06/08/23 04:10 ALT 17 U/L (16-61) 06/08/23 04:10 Alkaline Phosphatase 52 U/L (45-117) 06/08/23 04:10 Triglycerides 206 mg/dL (<150) H 06/07/23 05:43 Cholesterol 210 mg/dL (<200) H 06/07/23 05:43 HDL Cholesterol 33 mg/dL (40-60) L 06/07/23 05:43 Cholesterol/HDL Ratio 6.36 06/07/23 05:43 Lipase 39 U/L (13-75) 06/07/23 05:43 Home Medications: RX: Cyanocobalamin [Vitamin B-12*] 1,000 mcg SQ SEECOM #4 vial 03/09/18 RX: Atorvastatin Calcium [Lipitor] 40 mg PO BEDTIME #30 tab 05/06/23 RX: Insulin Glargine,Hum.rec.anlog [Toujeo Max Solostar] 30 units SQ BEDTIME 06/06/23 RX: Levothyroxine Sodium [Synthroid] 200 mcg PO DAILY 06/06/23 RX: Losartan Potassium [Cozaar] 100 mg PO DAILY 06/06/23 RX: Meclizine HCl [Antivert] 50 mg PO TID 06/06/23 Physician Discharge Instructions: 1. Please call and schedule a follow-up appointment with your PCP (Dr. Santana) in 3-5 days - Your thyroid blood work was slightly abnormal. Please discuss with your PCP for further medication adjustments. Medication changes: 1. Please stop taking semaglutide (Ozempic) and empagliflozin-metformin (Synjardy) - please discuss with your PCP - Please follow-up with your PCP for medication refills/adjustments Diet: ADA Activity: Ad ramiro Followup: Domenico Santana DO, DO [Primary Care Provider] - Time spent managing pt's care (in minutes): 25
[2023-06-08 14:45] VITALS: BP 108/82; TEMP 97.3
== END 2023-06-08 13:50 | disposition home or self-care (01) | DRG 638 ==
LOC: ER 14:09 → ERHOLD 18:03 → 3RD-ICU 19:20
PROVIDERS: ADMIT Hospitalist; ATTEND Internal Medicine
DX: E11.10 Type 2 diabetes mellitus with ketoacidosis without coma (principal); N17.9 Acute kidney failure, unspecified; R65.10 Systemic inflammatory response syndrome (SIRS) of non-infectious origin without acute organ dysfunction; E78.5 Hyperlipidemia, unspecified; E86.0 Dehydration; E03.9 Hypothyroidism, unspecified; Z79.82 Long term (current) use of aspirin; Z79.890 Hormone replacement therapy; Z79.899 Other long term (current) drug therapy; Z87.891 Personal history of nicotine dependence
CPT/HCPCS: 36415; 71045; 74176; 80048; 80053; 80061; 81001; 82010; 82248; 82947; 83036; 83690; 83735; 83880; 84100; 84132; 84439; 84443; 84484; 85025; 85610; 85730; 93005; 96361; 96372; 96374; 99285; J1815; J2405; J7030; J7042